=== PATIENT | male | born 1925 | race Caucasian/White ===

== ENCOUNTER 2016-10-23 08:30 | Inpatient (IN) | payer MEDICARE, OTHER ==
[~2016-10-23] VITALS: Ht 170.2 cm; Wt 73.5 kg
[~2016-10-23 08:30] MED LIST: ACIDOPHILUS1 EAC2 PO; ASPIR 8181 MG PO; B COMPLETE1 EACH PO; DILTIAZEM ER180 MG PO; FISH OIL 1,0001 EAC1 PO; HYDROCHLOROTHIA25 MG PO; MULTIVITAMINS1 EAC7 PO; PANTOPRAZOLE SO20 MG PO; PRILOSEC20 MG PO
--- NOTE | 2016-10-27 16:23 | NUR ---
[facility] PT CARE NOTE THIS IS AN 89 YEAR OLD MALE PT THAT IS SCHEDULED FOR A LEFT TOTAL KNEE REVISION BY DR LISE DEL RIO ON 11/09/16. PT STATES HE LIVES WITH HIS IN A ONE STORY HOUSE WITH 2 STEPS INTO IT. HE SAYS HE HAS A TUB/SHOWER COMBINATION AND IS WANTING TO OBTAIN A HANDHELD SHOWER HEAD, AND A SHOWER SEAT. STATES HE ALREADY HAS A FRONT WHEELED WALKER. ALSO HE IS PLANNING ON GOING TO [facility] WHEN DC FROM THE HOSPITAL. WILL FOLLOW THE PT DURING HIS STAY IN THE HOSPITAL. 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
--- NOTE | 2016-11-06 12:05 | NUR ---
RECIEVED A PHONE MESSAGE FROM MRS LEE STATING THAT MY ROSA HAD A HORRIBLE HACKING COUGH AND SHE WANTED TO KNOW WHAT TO DO ABOUT IT. I REFERED THIS CALL TO DAY SURGERY AND THEY WERE GOING TO CALL HER, I BELIEVE IT WAS JOSHUA.
--- NOTE | 2016-11-09 06:55 | NUR ---
SCOPALAMINE PATCH FROM BEHIND RIGHT EAR FOUND LAYING ON PILLOW. NEW PATCH PLACED BEHIND RIGHT EAR.
--- NOTE | 2016-11-09 09:17 | NUR ---
11/09/16 0917 Chari Christy [phone] - PT ARRIVED TO PACU. MAINTAINING OWN AIRWAY. RESPONDS TO STIMULI BUT NOT ANSWERING QUESTIONS. SPINAL LEVEL NOT ASSESSED AT THIS TIME. WILL ASSESS WHEN PT RESPONDS TO QUESTIONS.
--- NOTE | 2016-11-09 09:56 | NUR ---
MED REC COMPLETE WITH TEODOROMART REFILL HISTORY. PATIENT ONLY TAKES ONE PRESCRIPTION MEDICATION PANTOPRAZOLE TWICE DAILY.
--- NOTE | 2016-11-09 10:23 | NUR ---
PT TO ROOM 124 VIA BED, ACCOMPANIED BY MARIZA SHEET METAL JOURNEYMAN AT 1010. RECIEVED BEDSIDE REPORT FROM JAYJAY DAWKINS- NS.NKR. PT RESTING WITH EYES CLOSED BUT AROUSED TO VERBAL STIMULI, SLIGHTLY DROWSY, BUT ORIENTED X 4. DENIES PAIN, DENIES NAUSEA. DRESSING TO LEFT KNEE EXTENDS FROM MID CALF TO MID THIGH, C/D/I, CRYO CUFF IN PLACE OVER DRESSING TO KNEE. PT UNABLE TO MOVE LEFT LEG OR FOOT/TOES, HAS GROSS MOVEMENT TO RIGHT LEG, FOOT, AND TOES. SENSATION DULLED, BUT INTACT TO LEFT THIGH, KNEE, CALF, AND FOOT, PT REPORTS DECREASE IN SENSATION THE MORE DISTAL TO LEFT KNEE THE FEELING IS. PEDAL PULSES WEAK, FEET COOL. JAYJAY DAWKINS REPORTED THAT THIS IS PT'S BASELINE.
--- NOTE | 2016-11-09 11:05 | NUR ---
PT DENIES PAIN, DENIES NAUSEA. PT ABLE TO FEEL DULL TOUCH AND PRESSURE TO LLE. NOW ABLE TO MOVE LEFT FOOT, MOVEMENT WEAK.
--- NOTE | 2016-11-09 11:48 | NUR ---
DR. LOPEZ IN TO SEE PATIENT FOR HOSPITALIST CONSULT.
--- NOTE | 2016-11-09 12:20 | NUR ---
PT RESTING WITH EYES CLOSED, AROUSED TO VERBAL STIMULI. DENIED PAIN, STATED THAT HE JUST FEELS SLEEPY. DENIES NAUSEA. SENSATION IMPROVING TO BILATERAL LOWER EXTREMITIES, INTACT TO INNER FEET AND TOES, REMAINS DULL TO OUTER FEET AND TOES, AND OUTER CALVES. PEDAL PULSES REMAIN FAINT, FEET REMAIN COOL. CAPILARY REFILL IS 4 SECONDS TO BILATERAL FEET. PER PT'S , PT HAS HAD "POOR CIRCULATION" FOR SOME TIME, AND HAS ALSO HAD COOL FEET FOR SOME TIME, SO PT IS AT BASELINE. DR. LOPEZ AWARE OF THIS.
--- NOTE | 2016-11-09 13:00 | NUR ---
PT DROWSY, AROUSED TO VERBAL STIMULI. DENIES PAIN OR NAUSEA. USED INSENTIVE SPIROMETER, GOT UP TO 700. ANESTHESIA STILL RESOLVING, PT HAS SENSATION TO BILATERAL LOWER EXTREMITIES, BUT TOUCH TO LATERAL FEET AND CALVES DULL. PT HAS HAD SIPS OF WATER, DECLINES ANYTHING FURTHER PO AT THIS TIME.
--- NOTE | 2016-11-09 14:50 | NUR ---
PT working with patient. in room with him. fresh ice in cryo cuff. fresh water given. no other needs at this time.
--- NOTE | 2016-11-09 15:00 | NUR ---
PT IN BED, WORKING WITH TAMEKA, PHYSICAL THERAPIST, DOING IN BED EXERCISES. STILL HAS SOME DIMINISHED SENSATION TO LATERAL FEET AND LOWER CALVES. DENIES PAIN.
--- NOTE | 2016-11-09 15:16 | NUR ---
PT WORKING WITH TAMEKA PHYSICAL THERAPIST, STANDING FROM BED WITH FWW WITH 1 PERSON ASSIST. HAVING DIFFICULTY WITH BALANCE, BUT ABLE TO TAKE 2 STEPS FORWARD, THEN 2 STEPS BACKWARDS, AND ASLO ABLE TO STEP TO THE LEFT X 4 STEPS.
--- NOTE | 2016-11-09 15:37 | NUR ---
GAVE PT APPLE JUICE AND 2 JELLOS, PT TOLERATING WELL THUS FAR. PT'S AT BEDSIDE.
--- NOTE | 2016-11-09 16:30 | NUR ---
PT DRANK 300 CC APPLE JUICE, ATE 2 JELLO CUPS, TOLERATED WELL. IS NOW DRINKING ICE WATER. HAS NOT VOIDED SINCE SURGERY, BLADDER SCAN SHOWS 241. PT HAS NO URGE TO VOID, AGREED TO ATTEMPT TO VOID. WILL MONITOR FOR URINE OUTPUT.
--- NOTE | 2016-11-09 16:36 | NUR ---
PT HAD LEFT TOTAL KNEE REVISION TODAY. HAS DRESSING FROM ANKLE TO UPPER THIGH, THICK, GAUZE, CAST PADDING, AND COBAN. DRESSING C/D/I. HAS HAD NO PAIN SINCE SURGERY. IS DRINKING FLUIDS WELL, NO C/O NAUSEA. IV SALINE LOCKED PT IS DRINKING FLUIDS WITHOUT ISSUE. TOLERATED CLEAR LIQUIDS, ADVANCED TO REGULAR DIET. WORKED WITH PHYSICAL THERAPY, DID IN BED EXERCISES, AND DID SITTING TO STANDING EXERCISES X 5. UNSTEADY ON FEET. SPINAL RESOLVING, BUT PT CONTINUES TO HAVE SOME DIMINISHED SENSATION TO LATERAL FEET, TOES, AND CALVES. HAS NOT VOIDED YET, BUT BLADDER SCAN SHOWS ONLY 241 CC. PT DRINKING PO FLUIDS WELL, IS ATTEMPTING TO VOID IN URINAL. IS ON 2L O2 VIA NC, SATS DROP TO 89% WHEN ASLEEP, AND PT HAS BEEN DROWSY, NAPPING OFF AND ON THIS AFTERNOON.
--- NOTE | 2016-11-09 18:18 | NUR ---
PATIENT BLADDER SCANNED FOR 383ML. PATIENT HAS NO URGE TO VOID AT THIS TIME.
--- NOTE | 2016-11-09 18:55 | NUR ---
PT DENIES PAIN. IS ATTEMPTING TO VOID IN URINAL. MOST RECENT BLADDER SCAN LESS THAN 500 CC.
--- NOTE | 2016-11-09 19:15 | NUR ---
BEDSIDE REPORT RECEIVED FROM OFFGOING NURSE. PT LYING IN BED WITH FAMILY AT BEDSIDE. PT DENIES PAIN OR NAUSEA AT THIS TIME. DRESSING TO LLE C/D/I. CELESTE DUARTE AND SCD PRESESNT TO RLE. HEEL PROTECTORS TO BLE. PT DENIES NEEDS AT THIS TIME. CALL LIGHT WITHIN REACH.
--- NOTE | 2016-11-09 20:10 | NUR ---
RESPIRATORY THERAPIST NOTIFIED THIS OIL WELL DRILLING MANAGER THAT HE LOWERED THE PT'S SIDE RAILS SO THAT HE COULD USE THE URINAL, PER PT'S REQUEST. UPON ENTERING THE ROOM. PT STANDING AT BEDSIDE, HOLDING ON TO THE MATTRESS. ASSISTED PT BACK TO BED. EDUCATION PROVIDED REGARDING SAFETY, FALL PERVENTION. PT STATES UNDERSTANDING. STATES "I DIDN'T KNOW I WASN'T SUPPOSED TO BE OUT OF BED". PT ASSESSMENT COMPLETE. PT A&0X4, RATES PAIN 8/10 DRESSING TO LLE REMAINS C/D/I, AND ALL PRECAUTIONS IN PLACE. PT DENIES NAUSEA, STATES "I'M GOING TO THROW UP". EMESIS BAG PROVIDED, PT VOMITED ~200 ML. NEW GOWN AND BEDDING PLACED ON PT. PT REPORT THAT HIS STOMACH IS NOT UPSET, DECLINES FEELING NAUSEATED. PT ABLE TO TOLERATE SIPS OF WATER, SCHEDULED MEDICATIONS GIVEN AT THIS TIME. PT DENIES OTHER NEEDS AT THIS TIME. CALL LIGHT WITHIN REACH, BED ALARM IN PLACE.
--- NOTE | 2016-11-09 21:45 | NUR ---
PT FOUND BY DRYING FRAME OPERATOR SITTING AT BEDSIDE, BLEEDING FROM PULLING IV OUT. PT DENIES HAVING HAD PULLED IV OUT. STATES THAT HE "CANNOT REMEMBER THAT". PT CLEANED UP. NEW GOWN PLACED. PT TRANSFERED TO ROOM 120 FOR CLOSER SUPERVISION. NEW IV SITE PLACED. PT TOLERATED WELL. DENIES OTHER NEEDS, CALL LIGHT WITHIN REACH. CURTAIN OPEN FOR SUPERVISION FROM NURSES STATION.
--- NOTE | 2016-11-09 22:10 | NUR ---
PT BLADDER SCANNED WITH RESULT OF ~530. RANKIN CATHETER PLACED. PT TOLERATED WELL. IMMEDIATE RETURN OF 400ML OF ORANGE URINE. CALL LIGHT WITHIN REACH. DENIES OTHER NEEDS.
--- NOTE | 2016-11-09 23:45 | NUR ---
PT STATES "I'M GONNA THROW UP". EMESIS BAG PROVIDED. NEW GOWN PLACED, LINENS CHANGED. PRN ZOFRAN GIVEN. PT NO LONGER ABLE TO ACCURATELY STATE WHERE HE IS. MD NOTIFED, PLAN HOLD OXYCODONE PER MD ORDER.
--- NOTE | 2016-11-10 02:28 | NUR ---
PT ASSESSMENT COMPLETED. PT HAD 500 OF EMESIS, DENIES FEELING NAUSEATED "I DON'T KNOW WHERE THAT CAME FROM". DRESSING TO LLE C/D/I, ALL PRECAUTIONS REMAIN IN PLACE. RANKIN DRAINING ORANGE URINE. PT CONTINUES TO BE DISORIENTED, ORIENTED TO SELF ONLY. CALL LIGHT WITHIN REACH, BED ALARM ACTIVATED.
--- NOTE | 2016-11-10 04:03 | NUR ---
PT RESTING WITH EYES CLOSED. RESPIRATIONS EVEN AND UNLABORED. PT APPEARS TO BE SLEEPING.
--- NOTE | 2016-11-10 04:16 | NUR ---
PT RESTLESS, DISORIENTED, SLIGHTLY AGITATED MAJORITY OF SHIFT. ORIENTED TO SELF ONLY. BED ALARM IN PLACE. TIDWELL DRESSING TO LLE, C/D/I. CRYOCUFF TO LLE, TEDS & SCD TO RLE, HEEL PROTECTORS TO BLE. EMESIS X 3 THIS SHIFT, ZOFRAN X1. PAIN X1 THIS SHIFT, SCHEDULED PAIN MEDICATION GIVEN. PT UNALBE TO VOID AFTER SURGERY, RANKIN PLACED FOR BLADDER SCAN >500ML. UO QS, ORANGE URINE. 2 LPM VIA NC. 2-3 PA WITH FWW.
--- NOTE | 2016-11-10 05:33 | NUR ---
PT PICKING AT IV SITE. IV SITE REINFORCED WITH COBAN. PT ITCHING ARMS BILATERALLY. STATES "IN PLACES", WHEN ASKED IF HE WAS ITCHING. PRN NUBAIN ADMINISTERED. PT REMAINS ORIENTED TO SELF ONLY. DENIES OTHER NEEDS. BED ALARM REMAINS ACTIVATED AND CURTAIN OPEN FOR SUPERVISION.
--- NOTE | 2016-11-10 07:15 | OR ---
[facility] [address], [place] [address] Signed DATE OF PROCEDURE: 11/12/16 PREOPERATIVE DIAGNOSIS: Failed unicondylar knee replacement, left. POSTOPERATIVE DIAGNOSIS: Failed unicondylar knee replacement, left. PROCEDURE PERFORMED: Revision left total knee both components. SURGEON Lise Duque M.D. POLYMER TESTER Brielle Tran PA-C. Brielle was present for the entire surgery and was critical on positioning, retraction, wound closure and dressing application. ANESTHESIA: Spinal with Duramorph. BLOOD LOSS: Minimal. TOURNIQUET TIME: 95 minutes. IMPLANTS Pako triathlon size 5 femur, 4 tibia with a 9 mm insert and a 35-mm patella. A 10 mm medial tibial wedge with a 12 x 50 stem. BRIEF HISTORY The patient is an 89-year-old gentleman with progressive worsening knee pain that he has had basically since the unicondylar knee replacement was done. Workup showed possible infection; however, aspiration showed nothing. He was afebrile. Risks and benefits for revision were discussed with him and he elected to proceed. DESCRIPTION OF PROCEDURE Once consent was obtained, he was taken to the operating room. After adequate anesthesia, he was placed on the operating room table. A well-padded proximal thigh tourniquet was placed. The leg was then prepped and draped in a standard sterile fashion. A skin incision was then made and prior to opening the knee, 10cc of normal straw-colored fluid was removed and sent off for culture sensitivity and cell count. The fluid was sent off and the reading showed occasional epithelials with no organisms seen. The medial approach was then carried through the capsule of a sleeve around the posterior medial corner and the fat pad was excised. The scar tissue was excised anteriorly. 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 Biopsies were taken and the synovium was removed where the re was heavy metallosis. The knee was then flexed and the femoral component was grossly loose. I actually pulled it off with my fingertips. It Electronically Signed By: LISE DUQUE MD 11/10/16 0715 PATIENT NAME: CALIN LEE OPERATIVE REPORT DATE OF : [birth year] PHYSICIAN: LISE DUQUE MD REPORT #: [id number] REPORT IS CONFIDENTIAL AND NOT TO BE RELEASED WITHOUT AUTHORIZATION [facility] [address] [place], [place] [address] Signed was left in position, however, we positioned the femoral navigation guide and pinned it. Distal femur was then sized. The distal femur was then registered with the computer. The distal femoral cutting guide was set and the femoral component was removed. The distal femoral cut was made. The femur was sized to a 5 and rotation was set using Whitesides line and epicondylar axis. The block was pinned. The anterior, posterior and chamfer cuts were made. There was no need for posterior augment on the femur. The osteophytes were removed. Attention was then turned to the femur. The tibia was fairly loose but not completely loosened from the bone. The polyethylene was completely worn off posteriorly and the metal was rubbing metal on metal. The tibial tray was then removed. The navigation guide was pinned and the medial side was marked on the navigation guide. We then set the cutting block and the lateral side was cut. This was further revised 2 more mm distal after assessing the gap. This good. We then freshened up the medial side to a 10 mm augment. The trials were then positioned after establishing rotation prior to cutting the augment. The femoral trial was placed and using through range of motion with a 9 mm poly and found to be in excellent position alignment. We then drilled the femoral holes, cut and sized and drilled the patella. All bone surfaces were pulse lavaged and packed with a dry Ray-Itzel. Prior to this, we did do the stem drill hole and removed any remaining cement. The cement was mixed. We rod a proper consistency, displaced all implants on bone surfaces. Tibia was impacted in position first and all excess cement removed. The polyethylene was snapped into position and the femur was impacted, again all excess cement was removed. The knee was extended and nicely loaded. The patella was clamped and the remaining cement was removed. The knee was pulse lavaged at intervals throughout the procedure. A total of 3 L antibiotic irrigation was used. The periarticular soft tissues were injected with 100 mL ropivacaine and Toradol mixture. The cement was allowed to harden for 15 minutes and then the knee was flexed. An antibiotic cement was used. Knee was flexed and the remaining excess removed with osteotomes. The arthrotomy was then closed using #1 Stratafix, subcutaneous tissue with 0 Stratafix and skin with bryce. Wound was dressed with a Mepilex Ag dressing, ABD and bulky Ashley dressing. He tolerated the procedure well. All sponge, needle and instrument counts were correct. Lise Duque MD BA/Priscilla /[id number] Electronically Signed By: LISE DUQUE MD 11/10/16 0715 PATIENT NAME: CALIN LEE OPERATIVE REPORT DATE OF : [birth year] PHYSICIAN: LISE DUQUE MD REPORT #: [id number] REPORT IS CONFIDENTIAL AND NOT TO BE RELEASED WITHOUT AUTHORIZATION [address] [place], [place] [address] Signed cc: Paul Madrigal MD Electronically Signed By: LISE DUQUE MD 11/10/16 0715 PATIENT NAME: CALIN LEE OPERATIVE REPORT DATE OF : [birth year] PHYSICIAN: LISE DUQUE MD REPORT #: [id number] REPORT IS CONFIDENTIAL AND NOT TO BE RELEASED WITHOUT AUTHORIZATION
--- NOTE | 2016-11-10 07:22 | NUR ---
REPORT RECEIVED FROM JAYJAY DECKER. PT ASLEEP AFTER A LONG NIGHT OF RESTLESS BEHAVIOR. PT IV INFUSING. DRESSING HAS CRYO CUFF ON TOP BUT APPEARS CDI.
--- NOTE | 2016-11-10 07:29 | NUR ---
DR DEL RIO TO FLOOR. ORDERED TO HOLD OXY UNTIL PT CLEARS AND LEAVE RANKIN IN FOR NOW.
--- NOTE | 2016-11-10 08:45 | NUR ---
PT SITTING UPRIGHT IN BED. DENIES PAIN. STATES HE DOES NOT WANT BREAKFAST, NOT HUNGRY. PT DRINKING HIS TEA. TOOK MEDS WO DIFF. PT APPEARS TO BE MORE ORIENTED THIS MORNING. KNOWS WHERE AND WHAT.
--- NOTE | 2016-11-10 10:13 | NUR ---
FAMILY IN ROOM. PT AWAKE AND TALKATIVE. JOKING WITH THIS RN.
--- NOTE | 2016-11-10 10:45 | NUR ---
PATIENT LAYING IN BED WITH BY HIS SIDE. ASSISTED PATIENT WITH BED BAD. ORAL CARE DONE. FRESH ICE IN CRYO. INCOURAGED TO DRINK MORE FLUIDS. CALL BUTTON IN REACH NO OTHER NEEDS AT THIS TIME.
--- NOTE | 2016-11-10 11:30 | NUR ---
STARTED 500 ML BOLUS OF LR PER DR LOPEZ ORDER.
--- NOTE | 2016-11-10 13:17 | NUR ---
DR. LOPEZ IN TO SEE PATIENT. PATIENT GIVEN 4MG OF ZOFRAN PO FOR MILD NAUSEA.
--- NOTE | 2016-11-10 13:32 | NUR ---
GIVING SECOND 500ML FLUID BOLUS, PER DR. LOPEZ, AT THE SET RATE OF 250ML/HR. RANKIN EMPTIED FOR 75ML OF ORANGE URINE.
--- NOTE | 2016-11-10 15:14 | NUR ---
CHECKED PATIENT'S DRAW SHEET TO SEE IF RANKIN CATH WAS LEAKING AND FOR BM. DRAW SHEET CLEAN AND DRY TURNED PATIENT ON LEFT SIDE. FRESH ICE IN CRYO CUFF. CALL BUTTON IN REACH NO OTHER NEEDS AT THIS TIME.
--- NOTE | 2016-11-10 16:11 | NUR ---
PT SITTING UP IN CHAIR. PLACED TWO WARM BLANKETS. IN ROOM. DENIES PAIN.
--- NOTE | 2016-11-10 16:35 | NUR ---
PT TRYING TO GET HIM TO STAY IN HIS CHAIR. STATES HE CAN GET UP IF HE WANTS. STATES HE IS ACTING WEIRD NOW AFTER THE PHENEGREN. PT NO LONGER NAUSEOUS, BUT IS A LITTLE "WOUND UP". AGREED TO STAY IN CHAIR. PLACED WASTE BASKET UNDER TO KEEP LEG ELEVATED IT FALLS DOWN WITH WEIGHT. FAMILY IN ROOM.
--- NOTE | 2016-11-10 17:35 | NUR ---
PT ORIENTED FOR MOST OF THE DAY. NOW DISORIENTED AND FIDGETY. ONE NORCO GIVEN FOR PAIN. ONLY HURTS WHEN AMBULATING. HEAVY TWO PERSON ASSIST. D5LR @125, UO REMAINED LOW. 1L BOLUS GIVEN SLOWLY. FAMILY IN ROOM ALL DAY.
--- NOTE | 2016-11-10 18:20 | NUR ---
PATIENT CONFUSED TRYING TO FIND A "TUBE". PATIENT STATES HE'S LEAVING. FAMILY IN ROOM. SIDE RAILS UP. FLOOR PADS DOWN. BED ALARM ON. CALL BUTTON IN REACH.
--- NOTE | 2016-11-10 19:05 | NUR ---
BEDSIDE REPORT RECEIVED FROM OFFGOING NURSE. PT SITTING UP IN BED VISITING WITH FAMILY AT BEDSIDE. PER RN REPORT, PT BEGINNING TO BECOME DISORIENTED DAY PROGRESSES. PLAN TO ADMINISTER SEROQUEL CLOSER TO WHEN FAMILY IS PLANNING TO LEAVE FOR THE NIGHT. FAMILY IN AGREEMENT WITH THE PLAN.
--- NOTE | 2016-11-10 21:46 | NUR ---
PT ASSESSMENT COMPLETE. PT FAMILY REMAINS AT BEDSIDE. PT REMAINS ORIENTED TO SELF ONLY. PT HAS FIRM GRASP ON CATHETER, WITH SLIGHT TENSION. PT RELEASED JAVA XML DEVELOPER WITH REORIENTATION. PT DENIES PAIN. TIDWELL DRESSING TO LLE C/D/I. CRYOCUFF AND SCD PRESENT TO LLE, TEDS AND HEEL PROTECTORS TO BLE. CMS INTACT, PT DENIES NUMBNESS OR TINGLING. IS AT BEDSIDE, KNEE ADJUSTMENT LOCKED OUT ON BED. BED ALARM ACTIVATED. CALL LIGHT WITHIN REACH.
--- NOTE | 2016-11-10 22:39 | NUR ---
FILLED THE CRYO.
--- NOTE | 2016-11-10 22:55 | NUR ---
PT RESTING WITH EYES CLOSED. RESPIRATIONS ARE EVEN AND UNLABORED. NO RESTLESSNESS NOTED. CURTAIN OPEN FOR CLOSE SUPERVISION. BEDALARM ACTIVATED. MATS PRESENTS ON FLOOR. CALL LIGHT WITHIN REACH.
--- NOTE | 2016-11-11 00:16 | NUR ---
PT SITTING UP IN BED WITH BLANKETS THROWN OFF. PT STATES "IM GETTING UP". PT REMINDINED THAT HE IS IN THE HOSPITAL, HAD KNEE SURGERY, AND THAT HIS FAMILY WAS HERE THIS EVENING. PT STATES "I KNOW THAT". EXPLAINED TO PT THAT HE MAY NOT GET UP, PT STATES "DARN YOU BUTTHEADS!" PT ASKED WHETHER HE IS HAVING PAIN. PT STATES "WELL YES!". PRN PAIN MEDICATION BROUGHT INTO PT'S ROOM. EXPLANATION OF MEDICATION PURPOSE EXPLAINED. PT STATES "I'M NOT TAKING THAT, I DON'T HAVE PAIN." WARM BLANKET PROVIDED TO PT. PT RESTING IN BED WITH EYES CLOSED. NOT RESTLESS AT THIS TIME. BED ALARM ACTIVATED, MATS ON FLOOR, CURTAIN OPEN FOR SUPERVISION.
--- NOTE | 2016-11-11 01:15 | NUR ---
PT TAKING BLANKETS OFF, SITTING UP IN BED. UPON ENTERING ROOM PT HAS A FIRM GRASP ON RANKIN CATHETER. PT'S HAND IMMOBILIZIED. PT STATES "I AM GETTING UP TO GO TO THE BATHROOM". REMINDED PT THAT HE HAS CATHETER IN PLACE. PT BEGAN TO PULL ON CATHETER. INSTRUCTED PT NOT TO PULL ON CATH, PT SWINGING AT HARDNESS INSPECTOR WITH CLOSED FIST. INSTRUCTED PT NOT TO ATTEMPT TO HIT PEOPLE. PT LAID BACK IN BED. BLADDER SCAN PERFORMED WITH 0ML FOUND IN BLADDER. PT DENEIES TENDERNESS TO ABD. RANKIN DRAINING APPROPRIATELY. PT DENIES PAIN WHEN ASKED. NEW CATH SECURE PLACED ON PT'S LEG. PT RESTING WITH EYES CLOSED SNORING AUDIBLY UPON HARDNESS INSPECTOR'S EXIT FROM ROOM. BED ALARM ACTIVATED, FALL MAT ON FLOOR. CALL LIGHT WITHIN REACH. DRESSING TO LLE C/D/I. ALL PRECAUTIONS REMAIN IN PLACE EXCEPT HEEL PROTECTORS, WHICH PT IS NOT TOLERATING AT THIS TIME.
--- NOTE | 2016-11-11 04:04 | NUR ---
PT RESTING IN BED WITH EYES CLOSED. RESPIRATIONS ARE EVEN AND UNLABORED. PT APPEARS TO BE SLEEPING. BED ALARMS REMAINS ACTIVE AND FALL MATS PRESENT ON THE FLOOR. CALL LIGHT WITHIN REACH.
--- NOTE | 2016-11-11 05:47 | NUR ---
PT ORIENTED TO SELF ONLY THROUGHOUT SHIFT. RESTED WELL MOST OF SHIFT WITH INFREQUENT PERIODS OF WAKING WITH AGITATION. TIDWELL DRESSING TO LLE C/D/I, CRYOFUFF TO IN PLACE. CELESTE AND SCD TO RLE. PT NOT TOLERATING HEEL PROTECTORS THIS SHIFT. MASSIEL GARCIA, KARYNA QS. D5LR @ 125. 2-3 PA WITH FWW. KNEE CONTROLS LOCKED OUT ON BED, BED ALARM ACTIVATED, AND FALL MATS IN PLACE AROUND BED.
--- NOTE | 2016-11-11 07:04 | NUR ---
PT UP TO BEDSIDE COMMODE WITH 3PA AND FWW. XL SOFT BM. PT TOLERATED WELL. AFTERWARDS PT REPORTS PAIN WELL "SORE THROAT". PRN PAIN MEDICATION ADMINISTERED. PT UNABLE TO ACCURATELY UTILIZE PAIN SCALE, STATES "I DON'T KNOW". PT LYING IN BED. BED ALARM ACTIVATED, FALL MATS ON FLOOR. CALL LIGHT WITHIN REACH.
--- NOTE | 2016-11-11 07:45 | NUR ---
2 person assist patient to chair with gate belt and walker. patient weak. set patient up to chair with feet up and chair alarm on. oral care done. linens change. cryo cuff on. call button in reach.
--- NOTE | 2016-11-11 07:47 | NUR ---
RECIEVED BEDSIDE REPORT FROM JAYJAY DECKER. PT SLEEPING, BREATHING EVEN AND UNLABORED. FALL MAT IN PLACE, RANKIN DRAINING WELL.
--- NOTE | 2016-11-11 09:44 | NUR ---
PT UP TO CHAIR FOR BREAKFAST, ATE 50%, DRANK ENSURE. PT ALERT AND ORIENTATED TO SELF, SITUATION. PT DID NOT KNOW EXACTLY WHERE HE IS AT THIS TIME, BUT KNOWS HE IS FROM [facility] [employer]. PT NON-COMBATIVE, PLEASANT, COOPERATIVE.
--- NOTE | 2016-11-11 10:44 | NUR ---
PT IS UP IN CHAIR. PARTCIPATED IN PHYSICAL THERAPY, TOLERATED WELL. HAS FAMILY AT BEDSIDE. PARTCIPATED IN CARES, PLEASANT AND COOPERATIVE.
--- NOTE | 2016-11-11 10:54 | OR ---
[facility] [address], [place] [address] Signed DATE OF PROCEDURE: 11/09/16 PREOPERATIVE DIAGNOSIS: Failed unicondylar knee replacement, left. POSTOPERATIVE DIAGNOSIS: Failed unicondylar knee replacement, left. PROCEDURE PERFORMED: Revision left total knee both components. SURGEON: Lise Duque M.D. MONEY ROOM SUPERVISOR Brielle Tran PA-C. Brilele was present for the entire surgery and was critical on positioning, retraction, wound closure and dressing application. ANESTHESIA: Spinal with Duramorph. BLOOD LOSS: Minimal. TOURNIQUET TIME: 95 minutes. IMPLANTS Pako triathlon size 5 femur, 4 tibia with a 9 mm insert and a 35-mm patella. A 10 mm medial tibial wedge with a 12 x 50 stem. BRIEF HISTORY The patient is an 89-year-old gentleman with progressive worsening knee pain that he has had basically since the unicondylar knee replacement was done. Workup showed possible infection; however, aspiration showed nothing. He was afebrile. Risks and benefits for revision were discussed with him and he elected to proceed. DESCRIPTION OF PROCEDURE Once consent was obtained, he was taken to the operating room. After adequate anesthesia, he was placed on the operating room table. A well-padded proximal thigh tourniquet was placed. The leg was then prepped and draped in a standard sterile fashion. A skin incision was then made and prior to opening the knee, 10cc of normal straw-colored fluid was removed and sent off for culture sensitivity and cell count. The fluid was sent off and the reading showed occasional epithelials with no organisms seen. The medial approach was then carried through the capsule, The HALF-WAY was elevated as a sleeve around the posterior medial corner and the fat pad was excised. The scar tissue was excised anteriorly. 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 Biopsies were taken and the synovium was removed where there was heavy metallosis. The knee was then flexed and the femoral component was grossly loose. I actually pulled it off with my Electronically Signed By: LISE DUQUE MD 11/11/16 1054 PATIENT NAME: CALIN LEE OPERATIVE REPORT DATE OF : [birth year] PHYSICIAN: LISE DUQUE MD REPORT #: [id number] REPORT IS CONFIDENTIAL AND NOT TO BE RELEASED WITHOUT AUTHORIZATION [facility] [address], [place] [address] Signed fingertips. It was left in position, however, we positioned the femoral navigation guide and pinned it. Distal femur was then sized. The distal femur was then registered with the computer. The distal femoral cutting guide was set and the femoral component was removed. The distal femoral cut was made. The femur was sized to a 5 and rotation was set using Whitesides line and epicondylar axis. The block was pinned. The anterior, posterior and chamfer cuts were made. There was no need for posterior augment on the femur. The osteophytes were removed. Attention was then turned to the femur. The tibia was fairly loose but not completely loosened from the bone. The polyethylene was completely worn off posteriorly and the metal was rubbing metal on metal. The tibial tray was then removed. The navigation guide was pinned and the medial side was marked on the navigation guide. We then set the cutting block and the lateral side was cut. This was further revised 2 more mm distal after assessing the gap. We then freshened up the medial side to a 10 mm augment. The trials were then positioned after establishing rotation prior to cutting the augment. The femoral trial was placed and using through range of motion with a 9 mm poly and found to be in excellent position alignment. We then drilled the femoral holes, cut and sized and drilled the patella. All bone surfaces were pulse lavaged and packed with a dry Ray-Itzel. Prior to this, we did do the stem drill hole and removed any remaining cement. The cement was mixed. We rod a proper consistency, displaced all implants on bone surfaces. Tibia was impacted in position first and all excess cement removed. The polyethylene was snapped into position and the femur was impacted, again all excess cement was removed. The knee was extended and nicely loaded. The patella was clamped and the remaining cement was removed. The knee was pulse lavaged at intervals throughout the procedure. A total of 3 L antibiotic irrigation was used. The periarticular soft tissues were injected with 100 mL ropivacaine and Toradol mixture. The antibiotic cement was allowed to harden for 15 minutes and then the knee was flexed. Knee was flexed and the remaining excess removed with osteotomes. The arthrotomy was then closed using #1 Stratafix, subcutaneous tissue with 0 Stratafix and skin with bryce. Wound was dressed with a Mepilex Ag dressing, ABD and bulky Ashley dressing. He tolerated the procedure well. All sponge, needle and instrument counts were correct. Lise Duque MD BA/Priscilla /[id number] Electronically Signed By: LISE DUQUE MD 11/11/16 1054 PATIENT NAME: ROSACALIN OPERATIVE REPORT DATE OF : [birth year] PHYSICIAN: LISE DUQUE MD REPORT #: [id number] REPORT IS CONFIDENTIAL AND NOT TO BE RELEASED WITHOUT AUTHORIZATION [address] [place], [place] [address] Signed cc: Paul Madrigal MD Electronically Signed By: LISE DUQUE MD 11/11/16 1054 PATIENT NAME: CALIN LEE OPERATIVE REPORT DATE OF : [birth year] PHYSICIAN: LISE DUQUE MD REPORT #: [id number] REPORT IS CONFIDENTIAL AND NOT TO BE RELEASED WITHOUT AUTHORIZATION
--- NOTE | 2016-11-11 10:58 | NUR ---
PATIENT UP IN CHAIR FEET ELEVATED. FRESH WATER. ICE IN CRYO CUFF. ORAL CARE, SHAVE, BED BATH DONE. CALL BUTTON IN REACH FAMILY IN ROOM NO OTHER NEEDS AT THIS TIME.
--- NOTE | 2016-11-11 12:33 | NUR ---
RANKIN REMOVED BY MEDICAL STUDENTS. PT TOLERATED WELL. DRESSING REMOVED BY MD. SMALL AMOUNT OF BRUSING ON KNEE. EDILIA ARE CLEAN, DRY, INTACT. WOUND EDGES ARE WELL APROXIMATED.
--- NOTE | 2016-11-11 13:03 | NUR ---
patient sitting up in chair resting with eyes closed in chair.
--- NOTE | 2016-11-11 14:37 | NUR ---
REDRESSED LEFT KNEE WITH MEPLEX AND LYNDSEY WRAP. SURGICAL WOUND EDGES ARE WELL APROXIMATED, CLEAN, DRY. SCANT AMOUNT OF DRAINAGE FROM EDILIA. PT ALERT AND AWAKE.
--- NOTE | 2016-11-11 18:51 | NUR ---
TIDWELL DRESSING REMOVED, REDRESSED WITH MEPLEX AND LYNDSEY WRAP. DRESSING C/D/I. SOME BRUISING NOTED AROUND INCISION. SCANT AMOUNT OF DISCHARGE FROM EDILIA. PT ENDORSED PAIN WITH ACTIVITY, PAIN WELL CONTROLED AT REST.
--- NOTE | 2016-11-11 20:00 | NUR ---
RECEIVED REPORT AT 1900. FOUND PT IN CHAIR JUST FINISHING HIS DINNER. FAMILY JUST ENTERED THE ROOM. PT SEEMS TO BE IN GOOD SPIRITS AND HE DENIES ANY PAIN AT THIS TIME.
--- NOTE | 2016-11-11 20:15 | NUR ---
ALL LOBES WERE CLEAR, V/S WERE WNL, HOWEVER, PT HAD A TEMP OF 99.9 F. WILL CHECK MAR FOR AVAILABLE MEDS. EDEMA IS LLE IS +1, DORSALIS PEDIS PULSE ON LLE IS +1, PT DENIES NUMBNESS OR TINGLING, TOES ARE WARM TO TOUCH. PT HAS WEAKNESS IN BOTH FEET DUE TO FOOT DROP THAT IS BILATERALLY PRESENT. RIGHT DORSALIS PEDIS AND BILATERAL BRACHIAL PULSES ARE +2. BOWEL TONES IN ALL QUADRANTS ARE PRESENT. PT AT THIS TIME IS ONLY ORIENTED TO PERSON BUT IS COOPERATIVE.
--- NOTE | 2016-11-11 21:59 | NUR ---
PT IS SLEEPING AT THIS TIME.
--- NOTE | 2016-11-12 01:09 | NUR ---
PT IS AWAKE IN BED. ASSISTED PT WITH URINAL. PT DID NOT CALL FOR ASSISTANCE AND WAS GETTING READY TO GET OUT OF BED. BED ALARM IS NOW IN SITTING POSITION.
--- NOTE | 2016-11-12 03:15 | NUR ---
PT IS SLEEPING AT THIS TIME.
--- NOTE | 2016-11-12 04:16 | NUR ---
PT APPEARS TO BE RESTING IN BED AT THIS TIME.
--- NOTE | 2016-11-12 04:49 | NUR ---
PT OVERALL HAD AN UNEVENTFUL NIGHT.PT HAS BEEN SLEEPING ALL NIGHT. V/S SO FAR WERE WNL. NO NEW ISSUES NOTED AT THIS TIME.
--- NOTE | 2016-11-12 05:19 | NUR ---
PT OVERALL HAD AN UNEVENTFUL NIGHT. PT DOES NOT CALL WHEN GETTING OUT OF BED AND HAS BED ALARM ON. PT DENIED PAIN THIS SHIFT. PT HAS ONLY BEEN ORIENTED TO SELF THIS SHIFT. V/S ARE WNL. PT OVERALL IS STILL VERY WEAK.
--- NOTE | 2016-11-13 07:05 | DS ---
[facility] [address] [place], [place] [address] Signed ADMISSION DIAGNOSIS Aseptic failure, left unicondylar knee replacement. DISCHARGE DIAGNOSIS Aseptic failure, left unicondylar knee replacement. PROCEDURE PERFORMED DURING THIS HOSPITALIZATION Left total knee revision arthroplasty. BRIEF HISTORY The patient is an 89-year-old gentleman with progressive worsening of arthritis and failure or loosening of his unicondylar knee replacement. Risks and benefits of operative treatment were discussed with him and workup confirmed no significant infection. He elected to proceed. Once consent was obtained, taken to the operating room. After adequate anesthesia, he was placed on operating table. All downside pressure points well padded. He underwent the above-named procedure. He tolerated this well. He was taken to recovery room and subsequently to the orthopedic floor. He was seen by Physical Therapy, and due to fatigue, he was little bit slow to rehab. His pain control was excellent throughout his hospitalization. His labs remained stable. He was afebrile. He was felt to be a good candidate for continued inpatient rehab in a transitional bed to get himself strong enough to go home. He is agreeable with this plan. We will switch him to transitional bed today. Lise Duque MD BA/Josel /[id number] cc: Paul Madrigal DO Electronically Signed By: LISE DUQUE MD 11/13/16 0705 PATIENT NAME: CALIN LEE DISCHARGE SUMMARY DATE OF : [birth year] PHYSICIAN: LISE DUQUE MD REPORT #: [id number] REPORT IS CONFIDENTIAL AND NOT TO BE RELEASED WITHOUT AUTHORIZATION
== END 2016-11-12 06:14 | disposition swing bed (61) | DRG 463 ==
LOC: DSVR 11-09 05:40 → MS 11-09 05:40
PROVIDERS: ADMIT Specialist
PROC: 0SUD09Z Supplement Left Knee Joint with Liner, Open Approach (ICD-10-PCS; 2016-11-09)
PROC: 0SWD0JZ Revision of Synthetic Substitute in Left Knee Joint, Open Approach (ICD-10-PCS; 2016-11-09)
PROC: 3E0T3CZ (ICD-10-PCS; 2016-11-09)
PROC: 0SPD09Z Removal of Liner from Left Knee Joint, Open Approach (ICD-10-PCS; principal; 2016-11-09 06:45)
DX: T84.033A Mechanical loosening of internal left knee prosthetic joint, initial encounter (principal); G92 Toxic encephalopathy; N17.9 Acute kidney failure, unspecified; T40.2X5A Adverse effect of other opioids, initial encounter; G89.18 Other acute postprocedural pain; K21.9 Gastro-esophageal reflux disease without esophagitis; R73.03 Prediabetes; G62.9 Polyneuropathy, unspecified; M21.372 Foot drop, left foot; M21.371 Foot drop, right foot; Z86.79 Personal history of other diseases of the circulatory system; Y92.239 Unspecified place in hospital as the place of occurrence of the external cause; Z79.82 Long term (current) use of aspirin; Z88.5 Allergy status to narcotic agent; Z79.899 Other long term (current) drug therapy; Z87.891 Personal history of nicotine dependence
CPT/HCPCS: 01402; 36415; 64447; 64450; 73560; 76942; 80048; 80076; 85025; 87070; 87075; 87205; 88305; 89051; 89060; 94762; 97110; 97116; 97162; 97530; C1713; C1776; J0690; J1100; J1885; J2274; J2405; J2550; J2704; J2795; J3010; J7120

== ENCOUNTER 2016-11-12 06:15 | Inpatient (IN) | payer MEDICARE, OTHER ==
[~2016-11-12] VITALS: Ht 170.2 cm; Wt 73.5 kg
--- NOTE | 2016-11-12 07:00 | NUR ---
BEDSIDE HANDOFF REPORT RECEIVED FROM SPA ASSISTANT MANAGER RN. PT SLEEPING, LEFT UNDISTURBED.
--- NOTE | 2016-11-12 07:40 | NUR ---
BED ALARM SOUNDING. PT ATTEMPTING TO GET OUT OF BED. PT ASSISTED TO RESTROOM, 1 PERSON MAX ASSIST WITH FWW. PT WITH LOOSE STOOL. PT ASSISTED TO CHAIR, CHAIR ALARM ON.
--- NOTE | 2016-11-12 08:05 | NUR ---
PT SITTING IN CHAIR, CHAIR ALARM ON. PT DISORIENTED TO PLACE AND TIME. PT ON ROOM AIR, LUNG SOUNDS CLEAR. PT HR IRREGULAR. PT WITH LOOSE STOOL, MIRALAX HELD. PT CMS INTACT, LEFT LEG WITH 1+ EDEMA. PT WITH HX OF BILATERAL FOOT DROP, FOOT BRACE TO RIGHT FOOT. PT TOLERATING REGULAR DIET. PT CRYOCUFF. PT DENIES NEEDS AT THIS TIME.
--- NOTE | 2016-11-12 08:10 | NUR ---
MED REC COMPLETE--SWING
--- NOTE | 2016-11-12 10:31 | NUR ---
VISITED WITH PT BRIEFLY. HIS AND DAUGHTER ARE WITH HIM JUST A HELLO AHD PRAYER. PT DOING OK CONSIDERING SITUATION.
--- NOTE | 2016-11-12 11:11 | NUR ---
PT RESTING IN CHAIR. FAMILY AT BEDSIDE.
--- NOTE | 2016-11-12 11:37 | NUR ---
PT DISORIENTED TO PLACE, EVENT AND TIME. AT BEDSIDE, STATES OXYCODONE MAKES PT CONFUSED. PLAN TO HOLD OXYCODONE, NORCO AVAILABLE FOR PAIN CONTROL.
--- NOTE | 2016-11-12 14:55 | NUR ---
PT COMPLETED WITH PHYSICAL THERAPY. PT COMPLAINT OF PAIN WHILE WALKING. PT CONTINUES TO BE DISORIENTED. PT GIVEN 1 TAB NORCO. PT RESTING IN BED. CRYOCUFF, SCDS IN PLACE. BED ALARM ON. PT DENIES NEEDS AT THIS TIME.
--- NOTE | 2016-11-12 16:29 | NUR ---
PT CONFUSED, AGGITATED, PT PUSHING AND SWINGING AT NURSING STAFF. PT ASSISTED TO BATHROOM AND BACK TO BED. BED ALARM ON. DR. DEL RIO CALLED, NOTIFIED OF CONFUSION AFTER PAIN MEDICATION. TELEPHONE ORDER FOR NUCYNTA 50 MG 1-2 TABS Q4PRN AND TO DISCONTINUE OXYCODONE, RBVO.
--- NOTE | 2016-11-12 18:26 | NUR ---
DAUGHTER UPDATED ON PT STATUS, QUESTIONS AND CONCERNS ANSWERED.
--- NOTE | 2016-11-12 18:27 | NUR ---
PT CONFUSED, ORIENTED TO SELF, OXYCODONE DISCONTINUED, NUCYNTA ADDED. PT LUNG SOUNDS CLEAR, ON ROOM AIR. PT WORKED WITH PHYSICAL THERAPY AND OCCUPATIONAL THERAPY. PT TOLERATING REGULAR DIET, DENIES NAUSEA. PT WITH MULTIPLE LOOSE STOOLS, MIRALAX HELD. PT UP WITH 1-2PA WITH FWW, PT TO WEAR FOOT DROP BRACES WHEN OOB. PT WITH SCDS, HEEL PROTECTORS AND CRYOCUFF IN PLACE. PT VOIDING QS.
--- NOTE | 2016-11-12 20:00 | NUR ---
RECEIVED REPORT AT 1900. FOUND PT IN BED WITH FAMILY AT BEDSIDE.
--- NOTE | 2016-11-12 20:30 | NUR ---
EDEMA IN LLE IS STILL +2. THERE IS ALSO SIGNIFICANT BRUISING AND REDDNESS ON THE INSIDE OF HIS THIGH. PT DENIES PAIN AT THIS TIME. PT IS STILL AN ASSIST X2 DUE TO WEAKNESS IN BOTH LEGS. PT AT THIS TIME IS ONLY ORIENTED TO SELF. BED ALARM IS ON. ICE IS ALSO APPLIED AT SX SITE. V/S WERE WNL. PT IS TRYING TO SLEEP SINCE HE DID NOT SLEEP LAST NIGHT.
--- NOTE | 2016-11-12 23:06 | NUR ---
PT TRIED TO GET OUT OF BED. PT DOES NOT FOLLOW INSTRUCTIONS. PT ONLY HAS PAIN WHEN STANDING. ASSISTED PT WITH CLEAN UP AND BED CHANGE AFTER USING URINAL IN BED. PT IS BACK IN BED. BED ALARM IS ON.
--- NOTE | 2016-11-13 | NUR ---
PT HAS BEEN TRYING TO GET OUT OF BED SEVERAL TIMES. PT IS ORIENTED X1. PT HAS ALSO THREATEND TO HARM STAFF.
--- NOTE | 2016-11-13 02:52 | NUR ---
AT AROUND 0115 MD DEL RIO WAS CALLED ABOUT THIS PT AND HIS BEHAVIOR. RECEIVED AN ORDER FOR 0.5MG XANAX PO. PT UNTIL NOW REFUSED IT. SINCE THE PHONE CALL TO MD DEL RIO PT HAS TRYIED TO GET UP SEVERAL TIMES AND REFUSING HELP WHEN GOING TO THE BATHROOM. PT REFUSED URINAL AND BEDSIDE COMODE FOR A WHILE. AT AROUND 0245 I ASSISTED PT TO BATHROOM. HE VOIDED AND HAD A BM. PT NOW IS BACK IN BED. I REQUESTED A SITTER FROM LEARNING DEVELOPER. SHE SHOULD BE HERE SHORTLY.
--- NOTE | 2016-11-13 03:41 | NUR ---
PT IS SLEEPING NOW.
--- NOTE | 2016-11-13 04:43 | NUR ---
PT JUST WOKE UP AND WAS SHORT OF BREATH. O2 SATS WERE AT 92%. ONCE PT SAT UP IN BED O2 SATS WERE 93-94% AND STILL ARE. HIS IS ON FILM PAINTER AT THIS TIME. WILL CONTINUE TO MONITOR. ALL RIGHT LOBES HAVE FAINT EXPIRATORY WHEEZING. LEFT LOBES ARE CLEAR. WILL CONTINUE TO MONITOR.
--- NOTE | 2016-11-13 05:05 | NUR ---
PT KEPT TRYING TO GET UP FOR THE MOST PART OF THIS SHIFT. HE WAS ONLY ORIENTED TO SELF AND WAS THREATENING STAFF. MD DEL RIO ORDERED XANAX 0.5MG PO. PT AT FIRST REFUSED. PT SLEPT FOR A WHILE AFTER TAKING THE XANAX. PT AT THIS TIME IS A ONE ON ONE. PT WOKE UP AROUND 0430 WITH SOB. PT NOW IS ON BUMPER MACHINE OPERATOR AND O2 SATS ARE AROUND 93-94% ON RA. PT AT THIS TIME IS RESTING IN BED.
--- NOTE | 2016-11-13 07:00 | NUR ---
BEDSIDE HANDOFF REPORT RECEIVED FROM SHINE WORKER RN. PT GETTING OUT OF BED, PT CONFUSED. PT ASSISTED TO SIT AT EDGE TO VOID. MD AT BEDSIDE. PT ASSISTED BACK TO BED. BED ALARM ON.
--- NOTE | 2016-11-13 07:37 | NUR ---
URINE SAMPLE COLLECTED, PT ABLE TO VOID 45 ML OF LIGHT YELLOW CLEAR URINE. BUNDLE CLERK TO BEDSIDE TO DRAW LABS. PT IN BED, BED ALARM ON. LUNG SOUNDS CLEAR RIGHT SIDE, COARSE THROUGHOUT LEFT. PT DENIES NEEDS AT THIS TIME.
--- NOTE | 2016-11-13 07:55 | NUR ---
PT SITTING IN CHAIR, CHAIR ALARM IN PLACE. PT LUNG SOUNDS CLEAR, ON ROOM AIR, O2 SATS 94%, DENIES SOB. PT DENIES CHEST PAIN. PT HR IRREGULAR. PT BOWEL TONES ACTIVE, LOOSE BM TODAY. PT DENIES NAUSEA, TOLERATING REGULAR DIET. PT WITH EDEMA TO LLE 2+, RLE WITH TRACE EDEMA. PT ORIENTED TO SELF ONLY, REORIENTED TO ROOM AND SITUATION, PT NOT AGGITATED, EASILY REDIRECTED, FOLLOWING COMMANDS. PT DENIES NEEDS AT THIS TIME. CLOSE OBSERVATION, CLOSE TO NURSES STATION.
--- NOTE | 2016-11-13 11:01 | NUR ---
PHYSICAL THERAPY TO BEDSIDE, REPORTING THAT PT COMPLAINING OF PAIN. PT COOPERATIVE WITH THERAPY. PT GIVEN 50 MG NUCYNTA, RATING PAIN 8/10.
--- NOTE | 2016-11-13 17:30 | NUR ---
PATIENT ATE 100% OF DINNER, APPEARS UNBALANCED ON FEET. 2 PERSON ASSIST WITH WALKER AND GAIT BELT. PAIN WELL CONTROLLED ON NON NARCOTIC PAIN MEDICAITON. FAMILY WITH PATIENT THROUGHOUT EVENING. X3 BMS AND URINATING WELL. LR@ 125 ML HR. STOP AFTER THIS BAG.
--- NOTE | 2016-11-13 20:00 | NUR ---
RECEIVED REPORT AT 1900. PT WAS IN BED SLEEPING.
--- NOTE | 2016-11-13 21:06 | NUR ---
PT PAINFUL AFTER RETURNING TO BED FROM BEDSIDE COMMODE. 1 TAB NUCYNTA GIVEN.
--- NOTE | 2016-11-13 22:00 | NUR ---
PT HAS TRYIED TO GET OUT OF BED SEVERAL TIMES AND IS STILL ORIENTED TO SELF. EXTRACTIONS TECHNICIAN CALLED MD LOPEZ AND GOT AN ORDER FOR SEROQUEL. IT WAS GIVEN. PT IS BACK IN BED NOW. ALL LOBES ARE CLEAR AT THIS TIME. LLE EDEMA IS STILL +2. PT KEEPS BENDING HIS LLE. I HAVE TALKED TO PT SEVERAL TIMES ABOUT KEEPING IT STRAIGHT AND THE CONSEQUENCES OF KEEPING IT BENT. PT DUE TO HIS MENTAL STATUS IS NOT ABLE TO RETAIN ANY EDUCATION AT THIS TIME. I WILL RELATE TO DAY SHIFT TO HAVE MD LOPEZ TALK TO HIS ABOUT HIS BASELINE MENTAL STATUS. PT IS IN BED NOW.
--- NOTE | 2016-11-14 01:44 | NUR ---
PT IS SLEEPING AT THIS TIME.
--- NOTE | 2016-11-14 03:57 | NUR ---
PT TRYIED TO GET OUT OF BED. PT NEEDED TO URINATE. PT WAS OK WITH USING THE URINAL IN BED. PT IS RESTING IN BED AT THIS TIME. BED ALARM IS ON.
--- NOTE | 2016-11-14 05:49 | NUR ---
AT START OF SHIFT PT TRIGGERD BED ALARM SEVERAL TIMES. PT IS STILL ONLY ORIENTED TO SELF. MD LOPEZ WAS CALLED BY SECOND FLOOR OPERATOR AND AN ADDITIONAL SEROQUEL ORDER WAS GIVEN. SINCE THEN PT HAS BEEN SLEEPING MOST OF THE NIGHT. HE TRIED TO GET OUT OF BED A COUPLE OF TIMES BUT WAS VERY COOPERATIVE WHEN ASKED TO USE THE URINAL IN BED AND NOT TO GET OUT OF BED BY HIMSELF. PERHAPS AND FAMILY NEED TO BE ASKED ABOUT HIS MENTAL STATUS BASELINE AT HOME.
--- NOTE | 2016-11-14 08:47 | NUR ---
PATIENT WAS ASSISTED UP TO THE CHAIR AND GIVEN A BEDBATH. NO OTHER REQUESTS AT THIS TIME.
--- NOTE | 2016-11-14 09:04 | NUR ---
PATIENT UP TO SHOWER AND THEN RECLINER. NEEDS 2 PERSON ASSIST. PAIN WELL CONTROLLED. EATING BREAKFAST TOLERATING WELL.
--- NOTE | 2016-11-14 11:00 | NUR ---
PATIENT UP TO BATHROOM, DENIES NEED FOR PAIN MEDICAITON. APPEARS MORE STABLE ON FEET. APPEARS DROWSY, WHEN SITTING DOZES OFF. ICE TO LEG. PROVIDED PATIENT WITH SHAVE.
--- NOTE | 2016-11-14 15:08 | NUR ---
PATIENT UP IN WHEEL CHAIR IN HALLS, NO COMPLAINTS OF PAIN. IN ROOM CONVERSING. NO COMPLAINTS OF PAIN. CONTINUES TO APPEAR DROWSY. PROVIDED PATIENT WITH ICECREAM AND ENCOURAGED TO STAY AWAKE.
--- NOTE | 2016-11-14 17:38 | NUR ---
PATIENT DROWSY THROUGHOUT DAY, ENCOURAGED PATIENT TO STAY AWAKE. WHEEL CHAIR RIDE OUTSIDE, AND PROVIDED PATIENT WITH SHAVE TO FACE. GOOD APPETITE THROUGHOUT DAY. APPEARS TO BE STEADY ON FEET WITH WALKER AND 2 PERSON STBY ASSIST, A MARKED IMPROVEMENT FROM YESTERDAY. CONTINUES TO HAVE BRUISING TO BACK SIDE OF LEG. DENIED NEED FOR PAIN MEDICATION THROUGHOUT DAY. EVENING DOSE OF SERAQUIL DC'D. PATIENT ALERT TO SELF AND APROPIATE WITH STAFF. TAB ALARM IN PLACE, CONTINUES TO TRY TO GET UP WITHOUT CALLING FIRST.
--- NOTE | 2016-11-14 20:35 | NUR ---
PT WOKE AT THIS TIME AND CALLED OUT FOR HELP TO AMBULATE INTO BATHROOM. ABLE TO STAND WITH ONE PERSON ASSIST AND CUEING TO AMBULATE INTO BATHROOM TO VOID. STATES HE KNOWS HE HAD KNEE SURGERY BUT [facility] ONE PERSON ASSIT WITH FWW TO BED, POSITIONED FOR COMFORT AND CRYOCUFF TO KNEE. GOOD CMS TO FOOT, HEEL PROTECTORS AND SCD TO R LEG. DENIES WANTING A SNACK, GIVEN TV REMOTE, WATCHING SHOW. BED ALARM ACTIVE FOR SAFETY.
--- NOTE | 2016-11-15 01:24 | NUR ---
taking over care of this pt, pt resting, no resp distress
--- NOTE | 2016-11-15 04:39 | NUR ---
PT ALERT TO NAME AND PLACE, COOPERATIVE WITH ASSESSMENTS, APPROPRIATE. USES CALL LIGHTS APPROPRIATELY, ASKS FOR URINAL, SL DC'D PER ORDERS. NO C/O PAIN, SPB, CUNFUSION OR AGGRESSIVENES. TURNS SELF IN BED. CONTINUES ON SWING BED PROGRAM
--- NOTE | 2016-11-15 07:24 | NUR ---
RECIEVED BEDSIDE REPORT FROM JAYJAY CHAVEZ. PT SLEEPING, BREATHING EVEN AND UNLABORED.
--- NOTE | 2016-11-15 09:16 | NUR ---
PT ATE BREAKFAST. FAMILY AT BEDSIDE. PT REPORTS NO PAIN, NO NAUSEA. BRUISING AROUND LEFT KNEE, SHADOWING ON DRESSING.
--- NOTE | 2016-11-15 16:09 | NUR ---
PT UP TO BATHROOM WITH MINIMAL ASSISTANCE. AMBULATED TO CHAIR. STATED MILD PAIN IN LEFT KNEE,
--- NOTE | 2016-11-15 17:22 | NUR ---
PT UP WITH PHYSICAL THERAPY, AMBULATED IN ESCOTO. PT NEEDED ONLY MINIMAL ASSIST IN STANDING TO AMBULATE TO TOILET. PT UP IN CHAIR FOR MEALS. DRESSING C/D/I. WOUND WELL APROXIMATED. MODERATE BRUISING AROUND KNEE.
--- NOTE | 2016-11-15 20:20 | NUR ---
PT IN GOOD SPIRITS, HAD A GOOD DAY, ONE PERSON ASSIST TO WALK INTO BATHROOM, STOOD AT SINK AND DID OWN HS CARES, STATES HE IS READY FOR BED. DENIES PAIN. IN BED NOW, CALL LIGHT IN EASY REACH.
--- NOTE | 2016-11-16 01:28 | NUR ---
ONE PERSON ASSIST TO AMBULATE INTO BATHROOM TO VOID. DENIES PAIN, REQUESTED WARM BLANKET FOR COMFORT.
--- NOTE | 2016-11-16 07:20 | NUR ---
one person assist with walker to the bathroom. shave, oral care, shower, shampoo, igor care, skin care, linenes changed done. patient sitting up in chair eating breakfast. call button in reach. eating breakfast.
--- NOTE | 2016-11-16 07:23 | NUR ---
BEDSIDE REPORT PT RESTING IN BED QUIETLY EYES CLOSED RR REGULAR. NO DISTRESS NOTED PT APPEARS TO BE SLEEPING, MILD SNORING NOTED
--- NOTE | 2016-11-16 08:36 | NUR ---
PT UP TO RECLIENR FOR BREAKFAST AFTER SHOWER. PT REPORTS NO PAIN.
--- NOTE | 2016-11-16 10:17 | NUR ---
PATIENT SITTING UP IN CHAIR RESTING WITH EYES CLOSED. SITTING BY HIS SIDE. CALL BUTTON IN REACH. CRYO CUFF HAS ICE. CHAIR ALARM ON FEET ELEVATED. NO OTHER NEEDS AT THIS TIME.
--- NOTE | 2016-11-16 11:27 | NUR ---
PT UP TO BATHROOM REPORTS PAIN IS MORE SIGNIFICANT IWTH ACTIVITY THAN BEFORE. DISCUSSED NEW PAIN MEDICATION NUCYNTA WITH PT AND SPOUSE. BOTH AGREE TO TRY AT THIS TIME. WILL MONITOR FOR EFFECTIVNESS
--- NOTE | 2016-11-16 12:35 | NUR ---
PT REPORTSNO PAIN AT THIS TIME RESTING IN RECLINER.
--- NOTE | 2016-11-16 13:11 | NUR ---
PT IN CHAIR, CHILLED AND WRAPPED IN WARMED BLANKET. SHE WAS ALERT AND FRIENDLY AND SHOOK MY HAND. HIS WAS BY HIS SIDE. HE SAID HE WASN'T FEELING MUCH BETTER YET TODAY. PT REQUESTED PRAYER, AND ASKED IF I WOULD CONTACT THEIR CERTIFIED MEDICATION AIDE, WHICH I DID. HE SEEMED TO STILL HAVE HIS SENSE OF HUMOR AND INVITED ME BACK. WILL CONTINUE TO FOLLOW
--- NOTE | 2016-11-16 14:31 | NUR ---
PT RESTING IN RECLINER AFTER PHYSICAL THERAPY. PHYSICAL THERAPIST REPORTS PT PAIN WAS AT 5/10 WITH ACTIVITY, PT REPORTS NO PAIN AT THIS TIME. WILL MONITOR
--- NOTE | 2016-11-16 15:39 | NUR ---
PT REPORTS NO PAIN AT REST. CRYO CUFF ON AND FRESH ICE. PT SPOUSE AT CHAIR SIDE
--- NOTE | 2016-11-16 17:25 | NUR ---
TOOK PT FOR A WALK AND HE WAS ABLE TO MAKE IT DOWN THE HALLWAY ABOUT THE LENGTH OF TWO ROOMS, HE COMPLAINED OF HIS KNEE HURTING MORE THIS TIME. STATION USHER MET US AT THE PTS DOOR WITH A CHAIR FOR HIM TO SIT DOWN IN.
--- NOTE | 2016-11-16 18:13 | NUR ---
PT HAS BEEN UP WITH PHYSICAL THERAPY X2, HE HAS BEEN UP IN RECLINER THROUGHOUT THE DAY, AMBULATED ESCOTO WITH EMERGENCY COMMUNICATIONS DISPATCHER THIS AFTERNOON. PT REPORTS NO PAIN AT REST, INCREASED PAIN WITH ACTIVITY. PT ON ROOM AIR. TOLERQTING REGULAR DIET WELL. INCISION WNL DRY, EDILIA INTACT OPEN TO ROOM AIR. PT SHOWERED TODAY. CRYO CUFF ON AND ICED.
--- NOTE | 2016-11-16 20:40 | NUR ---
PT IN BED MOLLY, WONDERING WHERE HIS AUNT IS THAT WAS GOING TO COME FISHING TODAY. ASK PT WHERE HE IS, STATES HE DOESN'T KNOW, ASK HIM WHAT SURGERY HE HAD, SAID HIS LEFT KNEE. ASKED IF HE SAW HIS TODAY, SHE VISTED TODAY, HE SAID NO. HAS HISTORY OF MEMORY WORSENING IN EVENING/NIGHT TIME. ORIENTATED HIM TO PLACE AND TIME, BED ALARM ON, CRYO CUFF ON RIGHT KNEE, WITH SLIPPER SOCKS ON EACH FOOT.
--- NOTE | 2016-11-16 21:06 | NUR ---
PATIENT THROW UP, NURSE NOTIFIED. GAVE WATER TO TINA.
--- NOTE | 2016-11-16 21:08 | NUR ---
FILLED CRY CUFF. FILLED ICE WATER CUP.
--- NOTE | 2016-11-16 21:54 | NUR ---
PT VOMITED UP BLACK GRAINY VOMITUS NEAR 2109. NOTIFIED DR DEL RIO AND RECEIVED ORDERS. TO STOP THE XARELTO, GIVE MED FOR VOMITING, GET LABS IN AM, AND HAVE DR. RUANO, HOSPITALIST CONSULT IN AM. WILL NOTIFY DR. DEL RIO IF PT VOMITS AGAIN. PT CONTINUES TO BE CONFUSED, SAYS HE WENT HOME TODAY AND WONDERS WHY HE IS HERE, AND WHERE IS HE. REASSURED PT AND ORIENTATED. REMINDED PT NOT TO GET UP ON HIS OWN, THAT HE NEEDS HELP. HAS USED THE URINAL ONCE SO FAR THIS SHIFT.
--- NOTE | 2016-11-16 23:00 | NUR ---
PT STATES HE FEELS BETTER. HAS NOT VOMITED AGAIN. REMAINS CONFUSED, WONDERING WHAT HE IS DOING HERE. LEFT KNEE EDILIA REMAIN INTACT, DENIES PAIN. OFFERED AND ACCEPTED WATER.
--- NOTE | 2016-11-17 01:00 | NUR ---
EYES CLOSED, RESP EVEN AND UNLABORED. HAS BEEN MOSTLY AWAKE, WITH PERIODS OF SLEEPING. USED URINAL SINCE MIDNIGHT.
--- NOTE | 2016-11-17 03:18 | NUR ---
CAUGHT PT TRYING TO GET OUT OF BED, NEEDED TO USE THE URINAL. ASSISTED INTO BED AND GAVE THE URINAL. EASY TO REDIRECT. ONCE CARE GIVEN, HE WENT BACK TO SLEEP.
--- NOTE | 2016-11-17 05:20 | NUR ---
HAS BEEN SNORING, FOR PAST HOUR. WOKE FOR LABS, AT FIRST TOLD LAB NO, BECAUSE HE DIDN'T KNOW WHY IT "NEEDED" DONE. REASSURED HIM, ORIENTATED HIM TO CURRENT DAY, CONTINUES TO BE CONFUSED, ABOUT WHERE HE IS AND WHY HE IS HERE. NO SIGNS OF PAIN, AND PT DENIES PAIN.
--- NOTE | 2016-11-17 06:17 | NUR ---
CURRENTLY EYES CLOSED, RESP EVEN AND UNLABORED. PT VOMITED BEGINING OF SHIFT 400 CC BLACK, GRAINY EMESIS, WHICH TESTED POSITVE FOR OCCULT BLOOD. DR. DEL RIO NOTIFIED, ORDERES RECEIVED. NO FURTHER VOMITING OCCURRED. PT REMAINED CONFUSED ENTIRE SHIFT, NOT KNOWING WHY HE WAS HERE NOR WHERE HE WAS. HAS USED URINAL APPROPRIATELY THIS SHIFT, DID TRY TO GET UP X 1 WITHOUT HELP. LEFT KNEE WELL APPROXIMATED, EDILIA INTACT, WITH NO SIGN OF INFECTION.
--- NOTE | 2016-11-17 07:10 | NUR ---
PT RESTING IN BED EYES CLOSED RR EVEN NO DISTRESS NOTED. PT APPEARS TO BE SLEEPING AT THIS TIME
--- NOTE | 2016-11-17 08:00 | NUR ---
one person assist with walker to bathroom. bed bath, oral care, clean linens done. patient up to chair with feet up scd's, cryo cuff, and chair alarm on. nurse in room. call button in reach.
--- NOTE | 2016-11-17 08:33 | NUR ---
PT SITTING UP IN RECLINER AT THIS TIME. ALERT, REPORTS NO PAIN AT THIS TIME
--- NOTE | 2016-11-17 09:41 | NUR ---
PT OFF THE UNIT WITH USAMA RO TO O.R. SUITE.
--- NOTE | 2016-11-17 10:41 | NUR ---
[phone] YR OLD MALE PATIENT ADMITTED TO CCU FROM OR VIA STRETCHER WITH DX OF S/P REVISION LEFT KNEE, GIB, POST ARREST. UPON ADMIT TO CCU PATIENT IS INTABATED. ETT IS TAPED 25 AT LIP, SIZE 7 . SETTING ON VENT AC-19,FIO2-40,TV-400. SUCTIONED FOR MOD AMOUNT OF THICK DARK SPUTUM. LUNGS ARE COURSE THROUGOUT. WRIST RESTRAINTS APPLIED PER PROTOCOL. RANKIN CATH PLACED WITHOUT PROBLEMS WITH RETURN OF CLEAR YVES URINE. PRBC'S INFUSING. RBC'S WERE HUNG IN OR. NG TO LCS WITH RETURN OF SMALL AMOUNT OF BLACK CONTENTS. NORMAL SALINE BOLUS HUNG PER ORDERS. PROTONIX 80 MG IV GIVEN FOLLOWED BY PROTONIX GTT AT 8 MG/HR. VERSED GTT HUNG AT 1.3 MG HR TO RASS SCORE OF -1. 18 GA IV STARTED TO RAC. 1115. FIRST UNIT OF PRBC'S COMPLETE. 2 UNIT HUNG. SEE BLOOD SHEET FOR VITAL SIGNS. PLAN IS TO TRANSFER PATIENT TO [facility]. DR. RUANO HAS BEEN IN UNIT.
--- NOTE | 2016-11-17 11:10 | NUR ---
TRANEXAMIC ACID HUNG PER ORDERS.
--- NOTE | 2016-11-17 12:15 | NUR ---
FLIGHT TEAM HERE. REPORT TO THEM. SECOND UNIT OF PRBC'S INFUSED. RECIEVED 530 ML OF NORMAL SALINE. IVF NOW AT 50 ML/HR. VERSED GTT INCREASED TO 3 MG.
--- NOTE | 2016-11-17 12:43 | NUR ---
TO [facility] VIA [employer].
--- NOTE | 2016-11-17 12:50 | NUR ---
REPORT CALLED TO [facility].
--- NOTE | 2016-11-17 14:19 | NUR ---
WAS CALLED TO OR FOR CODE BLUE. PT'S WAS IN SURGERY WAITING RM. JAYJAY KING WITH HER. DR LAST HAD JUST LEFT, UPDATING ON PT'S CONDITION. STAYED WITH PT, AT 'S REQUEST CONTACTED HER DAUGHTER CHANA, AND BROUGHT HOWARD BURGESS IN ALSO. PT IN SERIOUS CONDITION, CONCERN THAT HE IS TOO UNSTABLE TO TRANSPORT. CODE HAPPENED DURING EGD, LOOKING FOR BLEED. CONTACTED SIS IN [place], SHE ARRIVED FOR SUPPORT. DAUGHTER IN [place]. I WAS ABLE TO HAVE DR RUANO UPDATE CHANA BY PHONE. 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 HAD PRAYER WITH JORDAN, PT TRANSFERRED FROM CCU TO [facility]. GOD CHAO
--- NOTE | 2016-11-18 09:57 | OR ---
[facility] [address] [place], [place] [address] Signed DATE OF SERVICE: 11/17/2016 PREOPERATIVE DIAGNOSIS: Hematemesis. Anemia. Recent knee replacement, on Xarelto. POSTOPERATIVE DIAGNOSIS: Hematemesis. Anemia. Recent knee replacement, on Xarelto. PROCEDURE PERFORMED: Esophagogastroduodenoscopy without biopsy. ESTIMATED BLOOD LOSS: None. FINDINGS: Kyle had large amount of black liquid fluid in his stomach with large food particles. We saw no bright red blood and no obvious source of bleeding. I could not pass the scope through the pyloric channel because of obstruction by the food particles. He did vomit black blood before we started the procedure without any dr isaias park on board, and we consequently had to have our anesthesia provider come, and we ended up intubating him, given some atropine and so forth, and he is now hemodynamically stable, but he is in the ICU. Of course, I have discussed this with his several times at this point. INDICATIONS: Kyle is an 89-year-old gentleman I have known for quite some time from previous procedures. More recently, he has been in the hospital 9 days ago for his left knee replacement. He has been on Xarelto and in our swing bed here in the hospital. Last night, apparently, he had some hematemesis, and I was asked to see him earlier this morning in that regard. He has been up most of the night, and he is quite tired but otherwise seems to be hemodynamically stable, and he has been made n.p.o. overnight. In addition, our internal medicine service has been following as well. I went down. I met with Kyle and his . He actually had been up walking around earlier this morning, and he was sitting in his chair, but he was quite slee p y. After talking with Kyle and his , we decided to bring him down to our endoscopy suite for an upper endoscopy to see if there is any source of bleeding that we could find. I reviewed upper endoscopy with his , and of course, he has been through several endoscopies previously. She is well aware of that along with its risks, including, but not limited to, gas bloating, crampy abdominal pain, bleeding, perforation requiring surgery, and missed diagnosis. They had expressed understanding and wished to proceed. Electronically Signed By: JOSE MARTIN LAST MD 11/18/16 0957 PATIENT NAME: CALIN LEE OPERATIVE REPORT DATE OF : [birth year] PHYSICIAN: JOSE MARTIN LAST MD REPORT #: [id number] REPORT IS CONFIDENTIAL AND NOT TO BE RELEASED WITHOUT AUTHORIZATION [facility] [address] [place], [place] [address] Signed PROCEDURE NOTE: Kyle was taken down to our endoscopy suite and placed in a supine semi-recumbent position. We anesthetized the posterior oropharynx with Hurricaine spray. We withheld our usual Versed and fentanyl. We simply passed the scope in to the posterior oropharynx. He subsequently had large amounts of black liquid particulate gastric contents that he vomited. We suctioned this out and had him rotated into the left lateral decubitus position. We brought her anesthesia provider in, and he subsequently did that again, and so he needed to be intubated to protect the airway better. He did get a little hypotensive and bradycardic, so he required some atropine, and I think some Hernán-Synephrine was given as well. In the meantime, I went out to talk to his to explain to her that he was in a difficult position. She said he did want any heroic measures but would accept at least intubation in the short-term along with CPR. When I went back in the room, we went ahead and gave him a little propofol j ust to relax him enough to pass the scope. I encountered some liquid black fluid in his esophagus which I easily suctioned out, and we entered the stomach. The stomach had large amounts of black liquid fluid with particulate food matter. We passed our way down to the antrum, and we made multiple attempts to irrigate the area and suction that out, so we could pass into the duodenal bulb and out into the duodenum without success. We really could not see any edematous changes of the antrum, and we never did s e e the opening to the pylorus, so it is always possible that it is inflamed enough that it is closed, but we are not sure at this point. We did not see any fresh blood in the stomach, and we saw no ulcerations in the antrum or the body of the stomach. After this, I withdrew the scope and suctioned out the gas. Buster tolerated the procedure quite well. Afterwards, I went back out and spoke with his to explain what we found and that he still remains in a very serious situation. We are going to leave him intubated and take him into the ICU for ongoing resuscitation. She had expressed understanding and agreed to above plan. MD FABIAN Ren/Priscilla /[id number] cc: Paul Madrigal MD Electronically Signed By: JOSE MARTIN LAST MD 11/18/16 0957 PATIENT NAME: CALIN LEE OPERATIVE REPORT DATE OF : [birth year] PHYSICIAN: JOSE MARTIN LAST MD REPORT #: [id number] REPORT IS CONFIDENTIAL AND NOT TO BE RELEASED WITHOUT AUTHORIZATION [address] [place], [place] [address] Signed Michael Duque MD Electronically Signed By: JOSE MARTIN LAST MD 11/18/16 0957 PATIENT NAME: CALIN LEE OPERATIVE REPORT DATE OF : [birth year] PHYSICIAN: JOSE MARTIN LAST MD REPORT #: [id number] REPORT IS CONFIDENTIAL AND NOT TO BE RELEASED WITHOUT AUTHORIZATION
--- NOTE | 2016-11-18 09:57 | CONS ---
[facility] [address] [place], [place] [address] Signed DATE OF SERVICE: 11/17/2016 REFERRING PHYSICIANS: Michael Duque MD. CHIEF COMPLAINT: Hematemesis. HISTORY OF PRESENT ILLNESS Kyle is an 89-year-old gentleman, who decided knee replaced. He has been recovering in our swing bed, he is now postop day 9. He has been on his routine Xarelto. Last night, he did have some hematemesis of the Xarelto was stopped and he was made n.p.o. In the meantime, he has done fine. He is tired this morning. As he was up most of the night, although he has been up walking and did take some Prot rey. I was asked by the orthopedic service to come see him for an upper endoscopy. I know Kyle and his previously as I have removed skin cancers from his arms. ALLERGIES: Codeine. MEDICATIONS: Acidophilus, aspirin, multivitamin, diltiazem, fish oil, hydrochlorothiazide, omeprazole vitamin B and vitamin D. PAST MEDICAL HISTORY: He is hard of hearing, requiring hearing aid. 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 PAST SURGICAL HISTORY: He has had skin lesions removed. His neck surgeries appendectomy, cholecystectomy, vasectomy, back surgery with rods in place. Total shoulder replacement bilaterally with Dr. Musa, a left knee replacement, and right wrist surgery. SOCIAL HISTORY: He likes a little tea each day and used to smoke. He smoked up to a pack of cigarettes a day, but quit way back in the 1950s. He does not chew tobacco. He does not drink alcohol. He does not use drugs. He had been a longer most of his life. He is and has three children. Dr. Paul Madrigal. He is primary care provider and Dr. Michael Duque is his orthopedic surgeon. FAMILY HISTORY: His father had heart failure and his mother had breast cancer. REVIEW OF SYSTEMS: He had 1 0 systems reviewed with the help of his today. Really nothing new other than his knee replacement. Electronically Signed By: JOSE MARTIN LAST MD 11/18/16 0957 PATIENT NAME: CALIN LEE CONSULTATION DATE OF : [birth year] PHYSICIAN: JOSE MARTIN LAST MD REPORT #: [id number] REPORT IS CONFIDENTIAL AND NOT TO BE RELEASED WITHOUT AUTHORIZATION [facility] [address] [place], [place] [address] Signed PHYSICAL EXAMINATION: VITAL SIGNS: His blood pressure is 129/65, his heart rate 68, his respiratory rate is 18, his temperature is 98.5, he is 90 6% on room air. He is 5 feet 7 inches, and 73 kg. GENERAL: She is an 89-year-old gentleman, who appears his stated age. He has had his ideal body weight. He tired today. LUNGS: Clear to auscultation. HEART: Regular rate and rhythm. ABDOMEN: Benign. LABORATORY DATA: His white blood count 9.1, hemoglobin was 10.6, is now 9.4, his platelet count was 877 1000 that is up to 170 neutrophils 60, BUN is up a little 42 with creatinine 0.96. Liver function tests are negative. Albumin is 2.7. Buster is an 89-year-old gentleman, who just had his knee replaced and had been on Xarelto. He did have some hematemesis with a drop in his hemoglobin and his platelet count although that seems to be recovering. He has otherwise been hemodynamically stable. I think it is probably bernal to go ahead and check his stomach for gastritis and ulcer at this time. He will stay on his Protonix. I reviewed endoscopy with Kyle and his and they have been through this before vary from a with the process. They understand there is risk including, but not limited to gas bloating, crampy, abdominal pain, bleeding, perforation requiring surgery, and missed diagnosis. This also need for IV conscious sedation. They have expressed understanding, would like to proceed. MD FABIAN Ren/Priscilla /[id number] cc: MD Michael Ren MD Electronically Signed By: JOSE MARTIN LAST MD 11/18/16 0957 PATIENT NAME: CALIN LEE CONSULTATION DATE OF : [birth year] PHYSICIAN: JOSE MARTIN LAST MD REPORT #: [id number] REPORT IS CONFIDENTIAL AND NOT TO BE RELEASED WITHOUT AUTHORIZATION
--- NOTE | 2016-11-18 18:59 | EKG ---
[facility] [address] [facility] [place], [place] [address] Signed Sinus tachycardia Otherwise normal ECG No previous ECGs available Confirmed by JANE RUANO MD ([id number]) on 11/18/2016 6:59:06 PM Electronically Signed By: JANE RUANO MD 11/18/16 1859 PATIENT NAME: CALIN LEE Electrocardiogram DATE OF : [birth year] PHYSICIAN: JANE RUANO MD REPORT #: [id number] REPORT IS CONFIDENTIAL AND NOT TO BE RELEASED WITHOUT AUTHORIZATION
== END 2016-11-17 12:43 | disposition short-term general hospital (02) | DRG 377 ==
LOC: MS 06:15 → CCU 11-17 10:35
PROVIDERS: Colon & Rectal Surgery; ADMIT Specialist
PROC: 0BH17EZ Insertion of Endotracheal Airway into Trachea, Via Natural or Artificial Opening (ICD-10-PCS; 2016-11-17)
PROC: 5A0935Z Assistance with Respiratory Ventilation, Less than 24 Consecutive Hours (ICD-10-PCS; 2016-11-17)
PROC: 5A12012 Performance of Cardiac Output, Single, Manual (ICD-10-PCS; 2016-11-17)
PROC: 0DJ08ZZ Inspection of Upper Intestinal Tract, Via Natural or Artificial Opening Endoscopic (ICD-10-PCS; principal; 2016-11-17 09:30)
DX: K92.2 Gastrointestinal hemorrhage, unspecified (principal); J96.00 Acute respiratory failure, unspecified whether with hypoxia or hypercapnia; G93.41 Metabolic encephalopathy; T17.918A Gastric contents in respiratory tract, part unspecified causing other injury, initial encounter; Z96.652 Presence of left artificial knee joint; I10 Essential (primary) hypertension; R73.03 Prediabetes; K21.9 Gastro-esophageal reflux disease without esophagitis; G62.9 Polyneuropathy, unspecified; Z87.891 Personal history of nicotine dependence; K92.0 Hematemesis; Z79.01 Long term (current) use of anticoagulants; Z79.899 Other long term (current) drug therapy; G30.9 Alzheimer's disease, unspecified; F02.80 Dementia in other diseases classified elsewhere, unspecified severity, without behavioral disturbance, psychotic disturbance, mood disturbance, and anxiety
CPT/HCPCS: 36415; 36430; 71010; 71020; 80053; 81001; 82803; 83735; 85025; 86850; 86900; 86901; 86920; 93005; 93010; 94760; 97110; 97116; 97530; 99152; 99153; J0461; J2250; J2370; J2704; J3010; J7040; J7050; J7120; P9016

== ENCOUNTER 2016-11-23 12:29 | Inpatient (IN) | payer MEDICARE, OTHER ==
[~2016-11-23] VITALS: Ht 170.2 cm; Wt 73.5 kg
--- NOTE | 2016-11-23 13:00 | NUR ---
PT ARRIVED VIA GROUND TRANSPORT TO ROOM 111. AT THIS TIME. PT ALERT AND ORIENTED. HE IS DISORIENTED TO ALL BUT SELF AND FAMILY. COOPERATIVE, ABLE TO REORIENT, HE DOES NOT REMEMBER ANYTHING FROM LAST WEEK. SPOUSE AND SISTER IN ROOM AT BEDSIDE
--- NOTE | 2016-11-23 15:37 | NUR ---
PT VOIDED INCONT AND MISSED URINAL, BEDCHANGE AND TURNED AND REPOSITIONED NEW SAGRARIO PLACED AND BAIRRER CREAM PLACED ON BUTTOCKS STAGE 1 PRESSURE SORE ON LEFT BUTTOCKS.
--- NOTE | 2016-11-23 17:11 | NUR ---
PT ARRIVED VIA AMBULANCE TRANSFER AT 1300 TO ROOM 111. PT ALERT, DISORIENTED, COOPERATIVE, ABLE TO REORIENT FAMILY AT BEDSIDE. SCDS ON. PT GIVEN AND ENJOYED APPLE CLEAR ENSURE THICKENED NECTOR THICK. PT HAS STAGE 1 PRESSURE ULCER HAS BEEN REPOSITIONED Q2 HOURS, BARRIER CREAM PLACED.
--- NOTE | 2016-11-23 19:25 | NUR ---
IN TO MEET PT, REPORT RECV'D. PT IN BED, FAMILY AT BEDSIDE. PT PLEASANT AND ORIENTED. NO FURTHER NEEDS AT THIS TIME. WATER AND CALL LIGHT WITH IN REACH.
--- NOTE | 2016-11-24 00:38 | NUR ---
IN TO CHECK ON PT, PT SLEEPING, NO APPARENT DISTRESS NOTED. CALL LIGHT WITH IN REACH.
--- NOTE | 2016-11-24 02:57 | NUR ---
IN TO CHECK ON PT. PT APPEARS TO BE SLEEPING. CALL LIGHT WITH IN REACH.
--- NOTE | 2016-11-24 04:16 | NUR ---
PT HAS HAD UNEVENTFUL SHIFT, RESTED WELL. PT WAS ALERT AND PLEASANT AT THE BEGINNING OF SHIFT. SCDS IN PLACE. PT USES URINAL. PT HAS A STAGE 1 PRESSURE ULCER ON L BUTTUCK, REPOSITIONED Q2 HOURS. MEDICATION GIVEN IN APPLESAUCE, WHICH PT ENJOYS.
--- NOTE | 2016-11-24 07:17 | NUR ---
PT ALERT AND ORIENTED, PLEASANT, COOPERATIVE
--- NOTE | 2016-11-24 08:15 | NUR ---
MED REC COMPLETE
--- NOTE | 2016-11-24 08:59 | NUR ---
PT SITTING UP IN RECLINER WATCHING TV. CHAIR ALARM ON.
--- NOTE | 2016-11-24 09:28 | NUR ---
CLEAR APPLE ENSURE GIVEN TO PT THICKEN TO NECTOR THICK. PT REPORTS THAT HE ENJOYS THESE DRINKS
--- NOTE | 2016-11-24 12:31 | NUR ---
PT IMPROVING. JAYJAY RITCHIE FELT HE IS CLEARER WITH HIS THOUGHTS AND COGNITIVE ABILITY SINCE ARRIVING YESTERDAY. ANTONELLA IN WITH HIM, ALWAYS BY HIS SIDE. THE LAST COUPLE OF WEEKS HAVE TAKEN A TOLL ON HER. I ENCOURAGED HER TO TAKE A REST WHILE SHE IS HERE, AND GOT HER A PILLOW, AND JAYJAY CORNELL BROUGHT IN A BLANKET. SHE SEEMED VERY APPRECIATIVE. THEIR DA[place] TO HELP OUT. THEY BOTH EXPRESSED FEELING A LITTLE GUILTY, I ENCOURAGED THEM TO BE THANKFUL THE KIDS WANT TO BE NEAR TO HELP. PRAYED WITH THEM BOTH. WILL CONTINUE TO FOLLOW
--- NOTE | 2016-11-24 13:28 | NUR ---
PT SITTING UP IN RECLINER VISITING WITH GUESTS IN ROOM. NO DISTRESS NOTED.
--- NOTE | 2016-11-24 16:04 | NUR ---
PT RESTING IN RECLINER RR EVEN. NO DISTRESS NOTED. PT APEARS TO BE SLEEPING.
--- NOTE | 2016-11-24 18:11 | NUR ---
PT HAS BEEN UP TO CHAIR MOST OF THE DAY, WORKED WITH PHYSICAL THERAPY. OCCUPATIONAL THERAPY. HE HAS REPORTED NO PAIN OVER SHIFT EXCEPT LEFT GREAT TOE WHEN STANDING. HE HAD BM TODAY. EATING WELL, CLEAR ENSURES TO SUPPLEMENT.
--- NOTE | 2016-11-24 19:45 | NUR ---
IN TO SEE PT, PT UP IN CHAIR. ASSESSMENT DONE. CRYO CUFF AND TEDS IN PLACE. NO FURTHER NEEDS AT THIS TIME. CALL LIGHT WITH IN REACH.
--- NOTE | 2016-11-24 21:30 | NUR ---
PT UP TO BSC WITH 2 PERSON ASSIST AND FWW. PT TOLERATED WELL. SMALL SOFT BM. PT ASSISTED BACK TO CHAIR. PT STATES HE IS MORE COMFORTABLE IN THE CHAIR. CRYO CUFF IN PLACE. NO FURTHER NEEDS AT THIS TIME. CALL LIGHT WITH IN REACH.
--- NOTE | 2016-11-24 23:07 | NUR ---
IN TO CHECK ON PT, PT SLEEPING IN CHAIR. NO APPARENT DISTRESS NOTED. CRYO CUFF IN PLACE. CALL LIGHT WITH IN REACH.
--- NOTE | 2016-11-25 00:43 | NUR ---
IN TO CHECK ON PT, PT SLEEPING IN CHAIR. WATER AT BEDSIDE. CALL LIGHT WITH IN REACH.
--- NOTE | 2016-11-25 01:50 | NUR ---
PT UP TO BSC WITH 2 PERSON ASSIST AND FWW. PT C/O PAIN IN HIS L KNEE AND CHEST. PRN MEDICATION GIVEN. ASSISTED BACK TO BED. NO FURTHER NEEDS AT THIS TIME. CRYO CUFF FILLED AND IN PLACE. CALL LIGHT WITH IN REACH.
--- NOTE | 2016-11-25 04:23 | NUR ---
PT HAS HAD AN UNEVENTFUL SHIFT, SLEPT WELL. PT UP TO THE CHAIR FOR THE BEGINNING OF THE SHIFT. 2 PERSON ASSIST WITH FWW. TYLENOL GIVEN FOR PAIN. NECTAR THICK LIQUIDS, TOLERATING WELL. BM TONIGHT.
--- NOTE | 2016-11-25 05:15 | NUR ---
IN TO CHECK ON PT, PT AWAKE TO USE URINAL. NO FURTHER NEEDS AT THIS TIME. CALL LIGHT WITH IN REACH.
--- NOTE | 2016-11-25 07:19 | NUR ---
BEDSIDE REPORT FROM KHAI RO AND PAM RO. PT RESTING IN BED RR EVEN
--- NOTE | 2016-11-25 07:48 | NUR ---
PATIENT IS UP IN CHAIR. DID A COMPLETE LINEN CHANGE. EMPTIED TRASH. SET UP BREAKFAST. CALL LIGHT IN REACH. PATIENT IS DOING OKAY.
--- NOTE | 2016-11-25 08:48 | NUR ---
TRANSITIONAL CARE TEAM IN PT ROOM AT THIS TIME FOR ROUNDING CARE PLAN.
--- NOTE | 2016-11-25 10:32 | NUR ---
STOPPED IN PATIENT'S ROOM TO SAY HI. A NUTRITION CONSULT WAS ORDERED AND LOOKS LIKE IT'S FOR A STAGE 1 PRESSURE ULCER ON L BUTTOCK. VISITING AND ANOTHER PERSON VISITING, MIGHT BE THE SON. PATIENT SITTING IN CHAIR. HE SAYS HE PROBABLY LOST WEIGHT THE PAST 16 DAYS BEING IN HOSPITALS. HE IS EATING DECENTLY THOUGH HE'S NOT TOO FOND OF THE PUREED DIET. THIS WAS IMPLEMENTED THE PAST 8 DAYS OR SO DUE TO MODERATE OROPHARYNGEAL DYSPHAGIA. HE ENJOYS THE APPLE FLAVORED ENSURE CLEAR NECTAR THICKENED. STATES HE IS EATING EVERYTHING THEY BRING HIM SO HIS APPETITE IS GOOD. NO NUTRITION INTERVENTION DONE AT THIS TIME. WILL CONTINUE TO MONITOR WHILE HERE.
--- NOTE | 2016-11-25 11:48 | NUR ---
PT UP WITH PHYSICAL THERAPY AMBULATING IN ROOM.
--- NOTE | 2016-11-25 13:02 | NUR ---
MET WITH PT'S ANTONELLA. SHE WAS WALKING IN HALLS, AND LOOKED LIKE SHE COULD USE SOME COMPANY. CONFESSED SHE FORGOT HER CANE, AND IS HEADED TO [facility] [address] [address] FOR TREATMENT LATER TODAY. VISITED WITH HER AND SHE ADMITTED AGAIN SHE FEELS GUILTY FOR DAUGH[place]ANA [place]. I TOLD HER SHE IS HONORING HER PARENTS, WHICH WAS A SCRIPTURE SHE WAS TAUGHT. DON'T FEEL GUILTY, BE THANKFUL THEY ARE WILLING AND ABLE TO DO SO. SHE AGREED, SHED A TEAR AND THANKED ME FOR VISITING. WILL CONTINUE TO FOLLOW
--- NOTE | 2016-11-25 14:21 | NUR ---
PT SITTING UP IN RECLINER, CLEAR APPLE ENSURE GIVEN WITH NECTOR THICK. HE HAD NO COMPLAINTS TO PAIN, NO REQUESTS AT THIS TIME
--- NOTE | 2016-11-25 17:40 | NUR ---
PT HAS BEEN UP TO AMBULATE IN ROOM WITH PHYSICAL THERAPY REPORTED PAIN AT LEFT GREAT TOE, AND CHEST DESCRIBING PAIN AT RIB FX. HE SHOWERED TODAY. REPORTS NO PAIN AT REST. GOOD APPETITE. SWALLOWING PILLS WHOLE WITH NO PROBLEMS. CRYO CUFF TO LEFT KNEE. REPOSITIONED FREQUENTLY FOR SKIN INTEGRITY.
--- NOTE | 2016-11-25 19:15 | NUR ---
IN TO MEET PT, REPORT RECV'D FROM CHAU RO. PT UP TO CHAIR. WATER AT BEDSIDE. NO FURTHER NEEDS AT TIS TIME. CALL LIGHT WITH IN REACH.
--- NOTE | 2016-11-25 22:01 | NUR ---
IN TO CHECK ON PT, PT SLEEPING IN CHAIR. NO APPARENT DISTRESS NOTED. RESPIRATION EVEN AND UNLABORED. CALL LIGHT WITH IN REACH.
--- NOTE | 2016-11-25 22:36 | NUR ---
PT CALLED FOR HELP TO LOCATE CANE. PT NOTIFIED THAT HE HAS BEEN USING A WALKER WHILE IN THE HOSPITAL. PT REORIENTED TO TIME AND PLACE. PT UP IN CHAIR. OFFERED TO HELP BACK TO BED, PT STATES HE IS COMFORTABLE IN THE CHAIR. NO FURTHER NEEDS AT THIS TIME. ADVISED PT TO CALL IF HE NEEDS ANYTHING. CALL LIGHT WITH IN REACH.
--- NOTE | 2016-11-26 00:35 | NUR ---
IN TO CHECK ON PT, PT SLEEPING IN CHAIR. NO APPARENT DISTRESS NOTED. CALL LIGHT WITH IN PLACE. WILL CONTINUE TO MONITOR.
--- NOTE | 2016-11-26 02:44 | NUR ---
IN TO CHECK ON PT, PT AWAKE UP IN CHAIR. BLANKETS REPOSITIONED. OFFERED TO ASSIST PT TO BED, PT STATES "NO I AM ALRIGHT HERE." WATER AT BEDSIDE. CALL LIGHT WITH IN REACH.
--- NOTE | 2016-11-26 04:16 | NUR ---
PT UP TO BSC WITH 2 PERSON ASSIST AND FWW. TOLERATED WELL. BARRIER CREAM APPLIED. ASSISTED PT BACK TO CHAIR. CRYO CUFF FILLED. NO FURTHER NEEDS AT THIS TIME. CALL LIGHT WITH IN REACH.
--- NOTE | 2016-11-26 04:21 | NUR ---
PT HAS HAD UNEVENTFUL SHIFT, SLEPT IN CHAIR. NO C/O PAIN. UP TO BSC WITH 2 PERSON ASSIST AND FWW. TOLERATING NECTAR THICK LQUID. PT HAS BEEN MORE ORIENTED DURING THE SECOND HALF OF SHIFT. STAGE 1 ULCER ON BUTTOCKS, BARRIER CREAM APPLIED.
--- NOTE | 2016-11-26 07:10 | NUR ---
BEDSIDE HANDOFF REPORT RECEIVED FROM HOLLOW WARE MAKER RN. PT SLEEPING IN CHAIR, LEFT UNDISTURBED.
--- NOTE | 2016-11-26 08:34 | NUR ---
UP IN CHAIR EATING BREAKFAST. CRYO CUFF STILL HAS ICE. ICE WATER REFILL. EMPTY URNAL. EMPTY GARBAGE. UPDATE [place]. CHAIR ALARM ON. CALL LIGHT IN REACH.
--- NOTE | 2016-11-26 08:53 | NUR ---
PT RETSING IN CHAIR. PT ORIENTED TO SELF AND PLACE. PT ON 2L NC, LUNG SOUNDS WITH RHONCHI TO RIGHT SIDE AND LEFT BASE, CLEAR LEFT UPPER, ENCOURAGED FLUTTER VALVE. PT TOLERATING PUREED DIET, DENIES NAUSEA. PT WITH EDEMA TO BLE, AROUND ANKLES, 2+. PT COMPLAINT OF PAIN TO RIGHT BACK/SIDE. DISCUSSED PLAN OF CARE WITH PT. PT DENIES NEEDS AT THIS TIME.
--- NOTE | 2016-11-26 11:34 | NUR ---
PT SITTING IN CHAIR. SEEMS TO BE COMFORTABLE THERE. PT APPEARS SOMEWHAT MORE AWARE TODAY THAN YESTERDAY. A LITTLE SLOW TO RESPOND, BUT CLEAR RESPONSES, AND AND WELL THOUGHTOUT. HIS WILL PROBABLY STAY HOME TODAY-EYE SURGERY FOR HER YESTERDAY. HE SEEMS FINE WITH THIS. HIS SENIOR PROJECT ACCOUNTANT WAS BY EARLIER MORNING-PT REMEMBERED. HE SAID HE WAS THANKFUL THAT THEIR DAUGH[place] TO HELP. PT REQUESTED PRAYER. WILL CONTINUE TO FOLLOW
--- NOTE | 2016-11-26 11:56 | NUR ---
UP I CHAIR. TOOK BREAKFAST TRAY. EMPTY URNIL. HE BRUSHED DENCHERS. PHYSICAL THERAPY WALKED AND TOLIET PATIENT.
--- NOTE | 2016-11-26 14:23 | NUR ---
PT ASSISTED TO RESTROOM FOR BM. L BUTTOCK WOUND ASSESS, BLANCHABLE REDNESS, BARRIER CREAM APPLIED. PT ASSISTED BACK TO CHAIR. PT DENIES NEEDS AT THIS TIME.
--- NOTE | 2016-11-26 14:32 | NUR ---
HELPED YARELI AMBULATE FROM CHAIR TO BATHROOM AND BACK. EMPTY URNIL. CHECK CRYO CUFF. EMPTY GARBAGE.
--- NOTE | 2016-11-26 16:49 | NUR ---
PT SITTING IN CHAIR. PT PROVIDED WITH FRESH WATER. PT DENIES NEEDS AT THIS TIME.
--- NOTE | 2016-11-26 17:25 | NUR ---
PT ORIENTED TO SLEF AND PLACE, CALLING APPROPRIATELY, COOPERATIVE WITH CARES. PT ON 2L NC, LUNG SOUNDS WITH RHONCHI/COARSE, ENCOURAGE FLUTTER VALVE. PT WORKED WITH PHYSCIAL THERAPY, 1-2 PA WITH FWW AND GAIT BELT. S.T. SWALLOW EVAL COMPLETED, ADVANCED TO CHOPPED DIET WITH THIN LIQUIDS, TOLERATING WELL. PT VOIDING, QS. HAD MEDIUM BM TODAY. LIDOCAINE PATCH TO LEFT CHEST.
--- NOTE | 2016-11-26 19:39 | NUR ---
RECEIVED REPORT FROM DAY SHIFT RN. PATIENT IS RESTING IN THE RECLINER. PATIENT DENIES ANY PAIN AT THIS TIME. PATIENT HAS CRYO IN PLACE ON HIS RIGHT KNEE. PATIENT DENIES ANY NEEDS AT THIS TIME. PATIENTS CHAIR ALARM IS ON. PATIENTS CALL LIGHT IN REACH.
--- NOTE | 2016-11-26 20:15 | NUR ---
PATIENTS URINAL DUMPED PER REQUEST. PATIENT DENIES ANY FURTHER NEEDS CALL LIGHT IN REACH.
--- NOTE | 2016-11-26 22:13 | NUR ---
PATIENT ASSESMENT COMPLETED. PATIENT RATES PAIN AT A 1/10. PATIENT DENIES ANY THE NEED FOR ANY PAIN MEDICATION AT THIS TIME. PATIENT IS RESTING IN RECLINER WATCHING TV. PATIENT IS ORIENTED TO SELF, AND SURROUNDINGS THAT IS ALL. PATIENTS SURGICAL SITE ON HIUS RIGHT KNEE IS OPEN TO AIR AND EDILIA ARE PRESENT, AND IS WELL APPROXIMATED. PATIENT IS ON 2L VIA NC. PATIENT ENCOURAGE TO COMLETE IS AND CORONET. PATIENT WOULD LIKE TO SLEEP IN THE RECLINER. PATIENT HAS A CHAIR ALARM IN PLACE HE IS FORGETFUL AT TIMES. PATIENT HAS A PILLOW PLACED UNDER RIGHT BUTTOCK. PATIENT DENIES ANY NEEDS AT THIS TIME. CALL LIGHT IS WITHIN REACH.
--- NOTE | 2016-11-27 00:16 | NUR ---
PATIENT CONTINUES TO REST IN RECLINER WIH EYES CLOSED. PATIENTS BREATHING IS EVEN AND UNLABORED, RR 17. CALL LIGHT IN REACH.
--- NOTE | 2016-11-27 02:11 | NUR ---
PATIENT CONTINUES TO REST IN THE RECLINER. PATIENTS CRYO REFILLED WITH ICE. PATIENT DENIES ANY PAIN AT THIS TIME. CALL LIGHT IN REACH.
--- NOTE | 2016-11-27 04:01 | NUR ---
PATIENTS CRYO REFILLED WITH ICE PER DIRECTIONS. PATIENT DENIES ANY PAIN AT THIS TIME. CALL LIGHT IS WITHIN REACH.
--- NOTE | 2016-11-27 05:04 | NUR ---
PATIENT RESTED ON AND OFF THROUGHOUT THE SHIFT. PATIENT DENIED ANY PAIN. PATIENT IS ON A DYSHPAGIA CHOPPED DIET AND TOLERATING IT WELL. PATIENT IS ON 2L VIA NC. PATIENTS LEFT KNEE INCISION IS OPEN TO AIR, EDILIA IN PLACE, AND IS WELL APPROXIMATED. PATIENT HAS CRYO APPLIED TO LEFT KNEE. PATIENT ENCOURAGED TO DO IS AND CORONET. PATIENT HAS SCDS IN PLACE. PATIENT IS ON ASPIRATION PRECAUTIONS. PATIENT HAS NO IV. PATIENT IS ONLY ALERT TO SELF AND SURROUNDINGS. PATIENT HAS CHAIR ALARM IN PLACE.
--- NOTE | 2016-11-27 06:38 | NUR ---
PATIENTS CRYO REFILLED PER DIRECTIONS. PATIENT COMPLAINS OF DISCOMFORT IN HIS LEFT ANKLE. PATIENT GIVEN PRN TYLENOL PER ORDER. PATIENT REPOSTIIONED IN CHAIR. PATIENT DENIES ANY FURTHER NEEDS AT THIS TIME. CALL LIGHT IS WITHIN REACH.
--- NOTE | 2016-11-27 07:12 | NUR ---
RECIEVED BEDSIDE REPORT FROM JAYJAY AGUIRRE. PT SLEEPING IN CHAIR, FEET ELEVATED, BREATHING EVEN AND UNLABORED. WAKES EASILY WITH MOVEMENT. LEFT KNEE INCISION IS C/D/I, WELL APPROXIMATED. SMALL AMT OF BRUISING. 2L O2 VIA NASAL CANULA IN PLACE. CYROCUFF IN PLACE WITH NEW ICE.
--- NOTE | 2016-11-27 08:27 | NUR ---
PT UP IN CHAIR. PT IS ALERT, ORIENTATED X1. PT WOULD LIKE HIS TO COME IN.
--- NOTE | 2016-11-27 10:40 | NUR ---
PT IS UP WALKING WITH PHYSICAL THERAPY.
--- NOTE | 2016-11-27 12:11 | NUR ---
PT SITTING IN HIS FAVORITE PLACE-IN THE CHAIR. WE HAD A GOOD VISIT, BUT HE ADMITTED THAT HIS HASN'T BEEN ABLE TO COME BY AND VISIT FOR 2 DAYS. SHE HAD EYE SURGERY, AND HASN'T BEEN UP TO IT. HE MISSED HER, BUT UNDERSTANDS. PT IS ALERT AND ORIENTED, HIS SENSE OF HUMOR IS RETURNING,FOLLOWED WITH PRAYER. HE THANKED ME FOR VISITING
--- NOTE | 2016-11-27 15:00 | NUR ---
PATIENT AWAKE IN CHAIR. EMPTY GARBAGE. AM CARE. HELP WITH SHOWER. TOOK BREAKFAST AND LUCH TRAYS.
--- NOTE | 2016-11-27 16:26 | NUR ---
PT PLEASANT AND COOPERATIVE. PT SEEMS ORIENTATED, BUT VERY CONFUSED AND FORGETFUL. ABLE TO JOKE WITH STAFF. PT C/O RIB PAIN WITH MOVEMENT. PT WORKED WITH PHYSICAL THERAPY X2. RT WORKED WITH PT. PT TOLERATING CHOPPED DIET WELL WTIH THIN LIQUIDS. MULTIPLE VISITORS THIS SHIFT.
--- NOTE | 2016-11-27 19:42 | NUR ---
RECEIVED REPORT FROM DAY SHIFT RN. PATIENTIS RESTING IN RECLINER WATCHING TV. PATIENT DENIES ANY PAIN OR NEEDS AT THIS TIME. CRYO HAS SUFFICIENT ICE AND IS APPLIED TO LEFT KNEE. PATIENTS CALL LIGHT IS IN REACH.
--- NOTE | 2016-11-27 21:34 | NUR ---
PATIENT ASSESMENT COMPLETED. PATIENTS EVENING MEDICATIONS GIVEN PER ORDER. PATIENT DENIES ANY PAIN AT THIS TIME. PATIENT REPOSITIONED IN RECLINER AND PIPLLOW PLACED UNDER HIS RIGHT HIP. PATIENTS INCISION ON LEFT KNEE IS OPEN TO AIR AND EDILIA ARE PRESENT. INCISION IS WELL APPROXIMATED. PATIENT HAS SCDS ON BOTH LEGS. PATIENT WISHES TO SLEEP IN THE RECLINER. PATIENT DENIES ANY FURTHER NEEDS AT THIS TIME. CALL LIGHT IN REACH.
--- NOTE | 2016-11-27 23:54 | NUR ---
PATIENTS URINAL EMPTIED PER ORDER. PATIENT DENIES ANY PAIN. PATIENT DENIES ANY FURTHER NEEDS CALL LIGHT IS WITHINREACH.
--- NOTE | 2016-11-28 02:01 | NUR ---
PATIENTS CRYO REFILLED WITH ICE. PATIENT DENIES ANY PAIN AT THIS TIME. CALL LIGHT IN REACH.
--- NOTE | 2016-11-28 04:11 | NUR ---
PATIENT ASSISTED TO THE RESTROOM. PATIENT ASSISTED A 2PA W/FWW. PATIENT TOLERATED ACTIVITY WELL. PATIENT STRUGGLES WITH COORDINATION. PATIENT IS NOW IN BED RESTING. PATIENT COMPLAINS OF PAIN. PATIENT GIVEN PRN TYELNOL PER ORDER. PATIENT HAS SCDS, HELL PROTECTORS, AND CRYO ON LEFT KNEE. PATIENT DENIES ANY FURTHER NEEDS. PATIENT HAD X1 BM. BED ALARM ON AND CALL LIGHT IN REACH. PATIENT IS ONLT ORIENTED TO SELF.
--- NOTE | 2016-11-28 05:09 | NUR ---
PATIENT RESTED WELL FOR THE MAJORITY OF THE SHIFT IN THE RECLINER. PATIENT MOVED TO THE BED TO REST AROUND 0400. PATIENT HAD X1 BM. PATIENT RECEIVED X1 TYLENOL FOR PAIN IN HIS CHEST. PATIENTIS ON A DYSHPHAGI CHOPPED DIET AND IS TOLERATING IT WELL. PATIENT REFUSES TO WEAROXYGEN. PATIENT ENCOURAGE TO COMPLETE IS CORONET. PATIENT WEARS SCDSON BOTH LEGS. PATIENT HAS CRYO APPLIEF TO LEFT KNEE. PATIENT HAS NO IV. PATIENT IS ONLY ORIENTED TO SELF. PATIENTIS CONFUSED AND FORGETFUL. PATIENT HAS BED OR CHAIR ALARM IN PLACE FOR SAFETY. PATIENT USES CALL LIGHT ABOUT 50% OF THE TIME. PATIENT HAS INCISION ON LEFT KNEE THAT IS OPEN TO AIR, EDILIA PRESENT, AND IS WELL APPROXIMATED. PATIENT IS A 2PA W/FWW. HEEL PROTECTORS WORN WHILE PATIENT IS IN BED.
--- NOTE | 2016-11-28 06:20 | NUR ---
PATIENT ASSITED TO THE RESTROOM. PATIENT IS A 1-2 PA W/FWW. PATIENT STRUGGLES WITH COORDINATION. PATIENT IS ONLY ORIENTED TO SELF AT THIS TIME. PATIENT IS NOW RESTING IN RECLINER. CRYO REFILLED AND APPLIED TO LEFT KNEE. PATIENT DENIES ANY PAIN. PATIENTS CHAIR ALARMED PLACED ON FOR PATIENT SAFETY HE IS FORGETUL AT TIMES. CALL LIGHT IN REACH. SCDS ON
--- NOTE | 2016-11-28 08:29 | NUR ---
PATIENT FOUND SITTING IN BED, EATING BREAKFAST, REPORTS PAIN ON THE LEFT COASTAL REGION. LIDOCAINE PATCH APPLIED. DENIES NAUSEA. CRYO CUFF ON THE LEFT KNEE. SCD ON. PEDALS PULSE PRESENT AND PALPABLE. TRACE EDEMA NOTED ON THE LEFT LEG AND FOOT. NO IV ACCESS. CHAIR ALARM ON. PATIENT ORIENTED TO SELF, TIME AND DATE. CLOSE MONITORING. CALL LIGHT WITHIN REACH AND PATIENT AT VIEW OF THE NURSES STATION.
--- NOTE | 2016-11-28 09:55 | NUR ---
PT IS SITTING UP IN CHAIR VISITING WITH . PT DID NOT NEED ANYTHING ELSE
--- NOTE | 2016-11-28 10:17 | NUR ---
REMOVED PTS EDILIA FROM LEFT KNEE PER VERBAL ORDER FROM DR. RUANO. EDILIA HAVE BEEN PRESENT FOR THREE WEEKS SINCE SURGERY. PT TOLERATED REMOVAL WITH NO COMPLAINT OF PAIN. SURGERY INCISION SITE INTACT, NO DRAINAGE, REDNESS PRESENT. SOME BRUISING NOTED BELOW SITE. REAPPLIED ICE MACHINE TO PT KNEE. LEGS ELEVATED, SCDS IN PLACE, CALL LIGHT IN REACH. PT AT SIDE.
--- NOTE | 2016-11-28 11:28 | NUR ---
PATIENT SITTING UP IN CHAIR VISITING WITH HIS . NO REQUESTS AT THIS TIME.
--- NOTE | 2016-11-28 11:33 | NUR ---
PATIENT SITTING ON THE CHAIR RESTING, DENIES PAIN. IN ROOM VISITING.
--- NOTE | 2016-11-28 12:39 | NUR ---
PATIENT RESTING IN CHAIR EATING LUNCH. NO COMPLAINTS
--- NOTE | 2016-11-28 14:49 | NUR ---
PATIENT WALKED WITH PHYSICAL THERAPIST. TOLERATED WELL. REPORTED RIGHT RIBS PAIN WHILE WALKING. BACK TO BED AT THIS TIME RESTING.
--- NOTE | 2016-11-28 18:30 | NUR ---
PATIENT HAD DONE WELL FOR THIS SHIFT. WALKED WITH PHYSICAL THERAPIST ONCE. ATE MOST OF HIS MEALS. HAD MULTIPLE BM AND VOID WELL. EDILIA ON LEFT KNEE WERE REMOVED PER DR RUANO ORDER.CRYO CUFF APPLIED. REDNESS ON LEFT BUTTOCK STILL PRESENT. PATIENT WAS REPOSITIONED TRHOUGHOUT THE DAY. NO IV ACCESS. TRACE EDEMA ON THE LEFT LEG AND FOOT.
--- NOTE | 2016-11-28 19:49 | NUR ---
RECEIVED REPORT FROM DAY SHIFT RN. PATIENT IS RESTING IN BED WITH CRYO ON LEFT KNEE. PATIENT DENIES ANY PAIN AT THIS TIME. CALL LIGHT IN REACH. BED ALARM ON
--- NOTE | 2016-11-28 22:07 | NUR ---
PATIENT ASSESMENT COMPLETED. PATIENT DENIES ANY PAIN AT THIS TIME. PATIENT IS RESTING IN BED WATCHING TV. PATIENT HAS SCDS, AND HEEL PROTECTORS ON. PATIENT HAS INCISION ON LEFT KNEE THAT IS OPEN TO AIR AND WELL APPROXIMATED. EDILIA REMOVED ON DAY SHIFT. PATIENTS CRYO REFILLED WITH ICE PER DIRECTIONS. PATIENTS EVENING MEDICATIONS GIVEN PER ORDER. PATIENT DENIES ANY FURTHER NEEDS. PATIENTS BED ALARM PLACED ON FOR SAFETY. CALL LIGHT IN REACH.
--- NOTE | 2016-11-28 22:23 | NUR ---
PATIENT UP TO BATHROOM. 1PA WITH FWW, GAIT IMPROVED FROM PREVIOUS NIGHT, PATIENT USED THE CALL LIGHT APPROPRIATLY. AYDEN CARE COMPLETED WITH BARRIER CREAM APPLIED TO REDDENED AREA ON LEFT BUTTOCK. AREA BLANCHABLE. PATIENT POSITIONED IN BED WITH PILLOW UNDER RIGHT HIP. CALL LIGHT WITHIN REACH. FALL ALARM ON. NO FURTHER REQUEST AT THIS TIME.
--- NOTE | 2016-11-29 01:12 | NUR ---
PATIENT ASSISTED TO BATHROOM. 1PA W/FWW. PATIENT CORRDINATION IMPROVED FROM LAST NIGHT. AYDEN CARE PERFORMED WITH BARRIER CREAM APPLIED TO RED AREA ON LEFT BUTTOCK. AREA IS BLANCHABLE AND PATIENT STATES IT IS NOT TENDER. PATIENT MOVED TO RECLINER. CHAIR ALARM IN PLACE. SCDS ON. CROYCUFF IN PLACE WITH FRESH ICE/WATER. PATIENT DENIES PAIN. HEEL PROTECTORS ON. PATIENT REMINDED TO USE THE CALL LIGHT AND IT IS WITHIN REACH. NO FURTHER REQUEST AT THIS TIME.
--- NOTE | 2016-11-29 03:22 | NUR ---
ASSISTED PATIENT TO THE BATHROOM. AYDEN CARE COMPLETED, BARRIER CREAM APPLIED TO RED AREA ON LEFT BUTTOCK. AREA BLANCHABLE AND PATIENT STATES THE AREA IS NOT TENDER. 1PA W/FWW. GAIN CONTINUES TO IMPROVE. PATIENT REPORTED 3/10 PAIN IN HIS BACK. GIVEN PRN TYLENOL PER MD ORDERS. REMINDED PATIENT TO USE CALL LIGHT. CALL LIGHT WITHIN REACH. INSTRUCTED PATIENT TO USE THE IS. PATIENT DID 10 BREATHS ON THE IS. NO FURTHER REQUEST AT THIS TIME.
--- NOTE | 2016-11-29 05:04 | NUR ---
PATIENT RESTED WELL THROUGHTOUT THE SHIFT. PATIENT IS ON A DYSPHAGIA CHOPPED DIET. PATIENT HAS CRYO APPLIED TO HIS LEFT KNEE. PATIENTS INCISION SITE IS OPEN TO AIR AND WELL APPROXIMATED. PATIENT ENCOURAGED TO USE IS AND CORONET. PATIENT IS A 1PA W/FWW. PATIENT HAS NO IV. PATIENT HAS SCDS IN PLACE. PATIENT IS FORGETFUL AT TIMES. PATIENT IS ONLY ORIENTED TO SELF AT TIMES. PATIENT IS EASILY REORIENTED. PATIENTS BED/CHAIR ALARM IS ON FOR SAFETY. PATIENT USES CALL LIGHT ABOUT 50% OF THE TIME.
--- NOTE | 2016-11-29 06:27 | NUR ---
PATIENT ASSISTED TO THE RESTROOM. PATIENT WAS 2PA IN THE RESTROOM W/FWW. PATIENT WAS A 1PA W/FWW TO THE RECLINER. PATIENT IS NOW IN THE RECLINER. PATIENT HAS SCDS, HEEL PROTECTORS ON BOTH LEGS. CRYO REFILLED WITH ICE AND APPLIED TO LEFT KNEE. PATIENT DENIES ANY PAIN. ORAL CARE PERFORMED. PATIENTS CHAIR ALARM IS ON FOR SAFETY. PATIENT REORIENTED TO DATE, PLACE, TIME, AND SURROUNDINGS. CALL LIGHT IS WITHIN REACH.
--- NOTE | 2016-11-29 07:28 | NUR ---
BEDSIDE REPORT RECEIVED FROM TIMOTHY. ASSUMING PATIENT CARE AT THIS TIME. PATIENT RESTING IN CHAIR, NO COMPLAINTS AT THIS TIME.
--- NOTE | 2016-11-29 11:04 | NUR ---
patient has been relaxing in his chair he worked with PT.
--- NOTE | 2016-11-29 11:04 | NUR ---
PATIENT UP WALKING IN THE HALWAY WITH PHYSICAL THERAPIST. TOLERATED WELL. NO C/O PAIN.
--- NOTE | 2016-11-29 13:16 | NUR ---
PATIENT RESTING IN THE CHAIR. NO COMPLAINTS AT THIS TIME.
--- NOTE | 2016-11-29 17:33 | NUR ---
LIDOCAIN CREAM APPLIED TO LEFT GREAT TOE. PATIENT REPORT MILD PAIN ON THE LEFT GREAT TOE WHILE WALKING. PATIENT RESTING IN BED, DENIES NO NEEDS. FRIEND IN ROOM VISITING.
--- NOTE | 2016-11-29 18:45 | NUR ---
PATIENT HAD DONE WELL TODAY. WALKED FROM ROOM TO PHYSICAL THERAPY ROOM AND BACK TO HIS ROOM. TOLERATED WELL. REPORTED NO PAIN TROUGHOUT THE SHIFT. CALL APPROPRIATLY. THE REDNESS ON THE LEFT BUTTUCK STILL PRESENT. BARRIER CREAM APPLIED.
--- NOTE | 2016-11-29 21:02 | NUR ---
PT ASSESSMENT COMPLETE. PT DENIES ANY PAIN IN LEFT KNEE OR IN LEFT FOOT, DICLOFENAC OINTMENT APPLIED TO LEFT GREAT TOE. PT HAS NO IV ACCESS. PT IN GOOD SPIRITS THIS EVENING. LEFT KNEE IS OPEN TO AIR, INCISION HEALING WELL, WELL APPROXIMATED. CRYO CUFF IN PLACE. PT RESTING COMFORTABLY IN BED. PT DENIES ANY FURTHER NEEDS AT THIS TIME. CALL LIGHT WITHIN REACH.
--- NOTE | 2016-11-30 00:04 | NUR ---
PT WOKE UP CONFUSED, CALLING OUT FOR HIS . EASILY REORIENTED. REPOSITIONED IN BED. PT VOIDING IN URINAL. DENIES ANY FURTHER NEEDS AT THIS TIME. CALL LIGHT WITHIN REACH.
--- NOTE | 2016-11-30 04:26 | NUR ---
PT SLEEPING, RR EVEN AND UNLABORED. PT APPEARS COMFORTABLE AT THIS TIME. CALL LIGHT WITHIN REACH.
--- NOTE | 2016-11-30 05:10 | NUR ---
PT HAD AN UNEVENTFUL NIGHT. SLEPT MOST OF NIGHT. DENIED ANY PAIN. CRYO CUFF TO LEFT KNEE. LEFT KNEE IS OPEN TO AIR, INCISION WELL APPROXIMATED. PT CONFUSED, EASILY REORIENTED. PLEASANT AND COOPERATIVE. DICLOFENAC APPLIED TO LEFT GREAT TOE FOR COMFORT.
--- NOTE | 2016-11-30 07:28 | NUR ---
REPORT RECEIVED FROM JAYJAY RIDLEY. PT UP IN CHAIR WAITING FOR BREAKFAST. PT DENIES CONCERNS OR PAIN.
--- NOTE | 2016-11-30 08:48 | NUR ---
ASSESSMENT DONE. LIDO PLACED ON CHEST AND LEFT BIG TOE. PT DONE EATING BREAKFAST, ELEVATED FEET. CRYO IN PLACE. PT DENIES CONCERNS.
--- NOTE | 2016-11-30 10:28 | NUR ---
PUT PTS LEGS DOWN TO REPOSITION ON REAR. PT TOLERATED WELL AND DENIES CONCERNS. GAVE COFFEE.
--- NOTE | 2016-11-30 12:31 | NUR ---
PT'S ANTONELLA IS BACK ABLE TO VISIT WITH HIM FOLLOWING HER EYE SURGERY LAST WEEK. SHE EXPRESSED CONCERN TO ME REGARDING HIS RECOVERY WITH HIS KNEE. P.T. COMES IN, BUT SHE IS CONCERNED THAT HE IS NOT PROGRESSING. I SHARED THIS WITH HIS RN AND THEY WILL CONTINUE TO MONITOR. HAD PRAYER WITH BOTH OF THEM, AND WILL BE AVAILABLE NEEDED
--- NOTE | 2016-11-30 12:35 | NUR ---
PT HELPED BACK TO BED WITH FWW. WIPED UP REAR AND PUT NEW DEPENDS ON. IN CHAIR AT BEDSIDE. PT ASSISTED TO LAY ON SIDE TO GET OFF REAR FOR AWHILE.
--- NOTE | 2016-11-30 14:10 | NUR ---
OCC. THER. IN TO SEE PT AND ASSIST HIM BACK TO HIS BACKSIDE SIDE WAS HURTING HIS HIP. PT NOW COMFORTABLE.
--- NOTE | 2016-11-30 14:33 | NUR ---
PT TAKING A NAP IN BED AND TAKING NAP ON SOFA.
--- NOTE | 2016-11-30 15:05 | NUR ---
PT UP TO RESTROOM WITH FWW. TOLERATED WELL. HAD SMALL SOFT BM. BACK IN BED ON RIGHT SIDE WITH PILLOW AT BACK.
--- NOTE | 2016-11-30 19:24 | NUR ---
PT ASSESSMENT COMPLETE. PT RESTING IN BED COMFORTABLY. PT DENIES ANY PAIN. CRYO CUFF IN PLACE TO LEFT LEG, INCISION WELL APPROXIMATED, NO SWELLING/REDNESS NOTED. PT IN GOOD SPIRITS THIS EVENING. CALL LIGHT WITHIN REACH. PT DENIES ANY FURTHER NEEDS AT THIS TIME.
--- NOTE | 2016-11-30 21:23 | NUR ---
REPOSITIONED PT IN BED. REFILLED CRYO CUFF. APPLIED DICLOFENAC TO LEFT GREAT TOE. REMOVED LIDOCAINE PATCH FROM LEFT CHEST PER MD ORDERS. CALL LIGHT WITHIN REACH. PT DENIES ANY FURTHER NEEDS AT THIS TIME.
--- NOTE | 2016-12-01 00:44 | NUR ---
PT RESTING QUIETLY IN BED, RR EVEN AND UNLABORED. PT APPEARS COMFORTABLE AT THIS TIME. CALL LIGHT WITHIN REACH.
--- NOTE | 2016-12-01 01:45 | NUR ---
ASSISTED PT UP TO BATHROOM WITH x1 ASSIST USING FWW. PT HAD SMALL BM. PT BACK TO BED. IN GOOD SPIRITS, PLEASANTLY CONFUSED, COOPERATIVE. CRYO CUFF IN PLACE TO LEFT KNEE. WARM BLANKET GIVEN. CALL LIGHT WITHIN REACH. PT DENIES ANY FURTHER NEEDS AT THIS TIME.
--- NOTE | 2016-12-01 05:00 | NUR ---
PT SLEEPING, RR EVEN AND UNLABORED. PT APPEARS COMFORTABLE AT THIS TIME. CALL LIGHT WITHIN REACH.
--- NOTE | 2016-12-01 07:10 | NUR ---
REPORT RECEIVED FROM JAYJAY RIDLEY. PT AWAKE AND TALKATIVE. STATES HE SLEPT WELL.
--- NOTE | 2016-12-01 08:04 | NUR ---
PT UP IN CHAIR EATING BREAKFAST. SPEECH THER. IN DOING ANOTHER EVAL.
--- NOTE | 2016-12-01 10:26 | NUR ---
PT SITTING UP IN CHAIR WITH CRYO IN PLACE. DENIES CONCERNS.
--- NOTE | 2016-12-01 11:11 | NUR ---
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 ROOM. WITH TAMEKA. WITH PT. APPEARS TO BE TOLERATING WELL.
--- NOTE | 2016-12-01 12:41 | NUR ---
PT WORKING WITH Reji. HE HAS BEEN GOING UP AND DOWN THE HALLWAY. IN ROOM, WALKING BEHIND HIM IN SUPPORT. SHE FEELS HIS TIME IS SHORT HERE AND IS CONCERNED AT WHAT SHE PERCEIVES A LACK OF PROGRESS WITH REHAB ON HIS KNEE. HE WILL NEED HOME HEALTH TO FOLLOW UPON DC. WILL MAKE SURE ANTONELLA UNDERSTANDS THIS.
--- NOTE | 2016-12-01 12:55 | NUR ---
Got patient up in chair to eat breakfast also refused shower took one yesterday.
--- NOTE | 2016-12-01 13:56 | NUR ---
PT ASSISTED BACK TO BED. 1 PERS ASSIST WITH FWW. PT TOLERATED WELL.
--- NOTE | 2016-12-01 15:15 | NUR ---
PT HAS HAD MULTIPLE VISITORS IN THE LAST FEW HOURS AND HAS NOT HAD A CHANCE TO REST.
--- NOTE | 2016-12-01 17:23 | NUR ---
PT WORKED WITH PHYS. THER. X2 TODAY. TOLERATED WELL. WALKED IN [place] TO PT ROOM. SEVERAL VISITORS THIS EVENING, DID NOT GET A NAP. DID NOT REQUEST PRN TYLENOL FOR PAIN TODAY.
--- NOTE | 2016-12-01 18:37 | NUR ---
Filled Cryo at 1230PM.
--- NOTE | 2016-12-01 19:36 | NUR ---
Report recieved from day shift. Pt resting in bed. Independently using urinal. Boosted pt in bed with assist. Pt denies needs at this time. Call black within reach.
--- NOTE | 2016-12-01 23:19 | NUR ---
PT SLEEPING AT THIS TIME. PT USED URINAL INDEPENDENTLY, 100CC CLEAR/YELLOW EMPTIED.
--- NOTE | 2016-12-02 04:15 | NUR ---
PT RESTING IN BED, INDEPENDENTLY USED URINAL. PT STATES "HE IS COMFORTABLE." HYDRATION OFFERED BUT REFUSED.
--- NOTE | 2016-12-02 05:40 | NUR ---
PT SLEEPING. REPOSITIONED PT TO SEMI FOWLERS. CALL FOOTE WITHIN REACH.
--- NOTE | 2016-12-02 05:50 | NUR ---
PT HAD AN UNEVENTFUL NIGHT. PT SLEPT ALL NIGHT. NO PRN PAIN MEDICATION NEEDED.
--- NOTE | 2016-12-02 07:32 | NUR ---
PT. IS AWAKE IN BED. REPORT RECEIVED FROM RN. PT. IS EAGER FOR TO VISIT. NO NEEDS AT THIS TIME.
--- NOTE | 2016-12-02 08:32 | NUR ---
PT. IS UP IN CHAIR AND HAS FINISHED BREAKFAST. MORNING MEDICATIONS GIVEN PER MAR AND MORNING ASSESSMENT DONE. THERE ARE NO NEEDS AT THIS TIME.
--- NOTE | 2016-12-02 09:40 | NUR ---
AWAKE IN CHAIR EATING BREAKFAST. DID LINEN CHANGE. EMPTY GARBAGE. FRESH ICE WATER. FILLED CRYO CUFF. WARM BLANKET. PATIENT AGREED TO SHOWER LATER.
--- NOTE | 2016-12-02 10:45 | NUR ---
PT. IS SITTING IN CHAIR WATCHING TV. PAIN IS WELL CONTROLLED AT REST BUT ESCELATES WHEN UP WITH PHYSICIAL THERAPY. SCHEDULED TYLENOL AT 1230 WILL BE ADMINISTERED BEFORE PHYSICIAL THERAPY COMES BACK. NO NEEDS AT THIS TIME.
--- NOTE | 2016-12-02 11:12 | NUR ---
PT UP IN CHAIR. HAS REPOSITIONED HIMSELF SEVERAL TIMES. GIVEN WARM BLANKETS. PILLOW BEHIND HEAD.
--- NOTE | 2016-12-02 11:38 | NUR ---
PATIENT SLEEPING IN CHAIR DID NOT DISTURB.
--- NOTE | 2016-12-02 12:19 | NUR ---
PATIENT IN CHAIR EATING LUNCH, DID VITALS, REFILLED CRYO CUFF, HAS CHAIR ALARM ON AND CALL LIGHT IN REACH.
--- NOTE | 2016-12-02 12:31 | NUR ---
PT. UP IN CHAIR TALKING WITH FAMILY. PAIN MEDICATION GIVEN BEFORE PHYSICIAL THERAPY. NO OTHER NEEDS AT THIS TIME.
--- NOTE | 2016-12-02 13:50 | NUR ---
PT. OFF FLOOR FOR PHYSICIAL THERAPY.
--- NOTE | 2016-12-02 14:00 | NUR ---
PT IN CHAIR, HIS BY HIS SIDE. HAD A GOOD DISCUSSION REGARDING HIS DC, AND WHAT HELP MIGHT LOOK LIKE AT HOME. DISCUSSED HH, AND DIFFERENT DISCIPLINES DEPENDING THE DRS ORDERS. POSSIBLY OT, PT, RN OR BATH AIDE OR ANY COMBINATION. LEE WILL EXPLAIN ALL THIS DC GETS CLOSER. ALSO HOW IT IS PAID FOR. ANTONELLA SEEMED MUCH MORE RELIEVED, HAD PRAYER WITH BOTH AND WILL CONTINUE TO FOLLOW
--- NOTE | 2016-12-02 14:00 | NUR ---
PT. SITTING IN CHAIR AFTER PHYSICAL THERAPY, TALKING WITH FAMILY. NO NEEDS AT THIS TIME.
--- NOTE | 2016-12-02 15:03 | NUR ---
PATIENT IN CHAIR WATCHING TRAFFIC GO BY. PUT CRYO CUFF BACK ON KNEE. GOT HIM A WARM BLANKET. PICKED UP ROOM. CHAIR ALARM ON AND CALL LIGHT IN REACH.
--- NOTE | 2016-12-02 15:35 | NUR ---
PT. SITTING IN CHAIR TALKING TO FAMILY. PT. HAS NO NEEDS AT THIS TIME.
--- NOTE | 2016-12-02 16:51 | NUR ---
PT. REQUESTED HIS SWEAT PANTS BE REMOVED. NO OTHER NEEDS AT THIS TIME.
--- NOTE | 2016-12-02 17:49 | NUR ---
PT. HAS BEEN UP IN CHAIR VISITING WITH FAMILY FOR MAJORITY OF SHIFT. VITALS STABLE. TYLENOL GIVEN X2 FOR PAIN R/T PHYSICAL THERAPY. WHEN AT REST, PAIN IS WELL CONTROLLED. NO ACUTE CHANGES FROM BEGINNING OF SHIFT ASSESSMENT. INTENTIONAL ROUNDING DONE WITH ALL PATIENT'S NEEDS MET.
--- NOTE | 2016-12-02 18:59 | NUR ---
PATIENT IS BACK IN BED. I REFILLED CRYOCUFF AND PLACED CUFF ON HIS KNEE. I EMPTIED URINAL AND PLACED NEXT TO HIM WITHIN REACH. PATIENT STATED HE DID NOT NEED ANYTHING AT THIS TIME. HIS CALL LIGHT IS IN REACH.
--- NOTE | 2016-12-02 20:00 | NUR ---
REPOSITIONED PT TO FLOAT ON PILLOWS. INCISION TO L KNEE APPROXIMATED, NO REDNESS OR DRAINAGE. CRYO CUFF ON. PT DENIES NEEDING PAIN MEDICATION AT THIS TIME. PT VOIDING TO URINAL. RAILS UP X4, BED ALARM ON.
--- NOTE | 2016-12-02 21:26 | NUR ---
pt lidocaine off chest per order.
--- NOTE | 2016-12-02 23:32 | NUR ---
PT ASLEEP REPOSITIONED AT 2100. NO S/S OF DISTRESS.
--- NOTE | 2016-12-03 01:45 | NUR ---
PT USED URINAL INDEPENDENTLY. REPOSTIONED TO R SIDE. DENIES NEEDS. BED ALARM ON.
--- NOTE | 2016-12-03 05:21 | NUR ---
OFFERED PT TYLENOL, DENIES PAIN AT THIS TIME. EXPLAINED THAT WILL LIKELY HAVE MORE PAIN WHEN UP OUT OF BED TODAY. PT AGREED TO TAKE AT A LATER TIME. REPOSITIONED IN BED, HOWEVER PT REMOVES PILLOWS FROM UNDER HIPS ON HIS OWN.
--- NOTE | 2016-12-03 05:22 | NUR ---
PT SLEPT WELL DURING THE NIGHT. VOIDED TO URINAL INDEPENDENTLY. REPOSITIONED PT, HOWEVER HE REMOVES PILLOWS FROM BENEATH HIS HIPS. CALM AND COOPERATIVE THIS AM. REFUSING NEED FOR PAIN MEDICATION AT THIS TIME. CRYO CUFF ON L KNEE. INCISION REMAINS UNCHANGED - APPROXIMATED, MILD BRUISING, NO DRAINAGE.
--- NOTE | 2016-12-03 07:17 | NUR ---
BEDSIDE REPORT RECEIVED FROM JILL. PATIENT RESTING IN BED APPEARS TO BE SLEEPING. NO APPARENT DISTRESS NOTED. RR EVEN/UNLABORED.
--- NOTE | 2016-12-03 09:10 | NUR ---
PATIENT UP IN CHAIR. PICKED UP HIS ROOM. DID COMPLETE LINEN CHANGE. EMPTY GARBAGE. PUT CRYO CUFF BACK ON HIS KNEE. EMPTYED URINAL.
--- NOTE | 2016-12-03 10:19 | NUR ---
PATIENT UP TO CHAIR, WARM BLANKET PROVIDED. DENIES ANY NEED AT THIS TIME.
--- NOTE | 2016-12-03 12:17 | NUR ---
PATIENT UP IN CHAIR. HELPED PATIENT TRASFER TO BATHROOM AND THEN HELPED HIS SHOWER AFTER WORDS.
--- NOTE | 2016-12-03 14:28 | NUR ---
ANTONELLA IN WITH PT. THEY ARE PREPARING TO BE DC'D TOMORROW. THEY HAVE MADE SOME ARRANGEMENTS THAT WILL HELP AT HOME. GOOD VISIT, SHE HAS SOME ANXIETY-HE NEEDS TO HAVE MOTIVATION AT HOME. HAD PRAYER, GOD BLESS. WILL CONTINUE TO FOLLOW
--- NOTE | 2016-12-03 14:36 | NUR ---
PATIENT UP IN CHAIR VISITING WITH . MORENO JARRETT TOOK PATIENTS VITALS. CRYO CUFF STILL HAD PLENTY OF ICE IN IT. PATIENT IS CONTENT AND STATES HE DOES NOT NEED ANYTHING AT THIS TIME. CALL LIGHT IN REACH.
[2016-12-03] MEDS ORDERED: DICLOFENAC SOD100 G1 TOP (15:18)
[2016-12-03] MEDS ORDERED: PANTOPRAZOLE SO20 MG PO (15:19)
--- NOTE | 2016-12-03 17:24 | NUR ---
PATIENT RESTING IN BED, DENIES PAIN . HAD PT THIS AFTERNOO, TOLERATED THAT WELL.
--- NOTE | 2016-12-03 17:29 | NUR ---
PATIENT WAS UP WALKING TIN THE HALLWAY WITH PHYSICAL THERAPIST. TOLERATED WELL. NO COMPLAINTS OF PAIN EXCEPT ON THE LEFT GREAT TOE WITH PRESSUE.
--- NOTE | 2016-12-03 17:52 | NUR ---
PATIENT HAD DONE WELL TODAY. WALKED WITH PHYSICAL THERAPIST 2 TIMES TODAY FROM ROOM TO PT ROOM. TOLERATED WELL. PATIENT HAD SHOWERED TODAY. STILL REPORTED PAIN IN THE LEFT TOE WHEN WALKING AND PUT PRESSURE ON. LIDOCAIN PATCH APPLIED THE AM ON RIGHT SIDE. PATIENT REPORTED NO OTHER PAIN OR DISCOMFORT. MAY D/C TOMORROW.
--- NOTE | 2016-12-04 02:07 | NUR ---
IN TO CHECK ON PT, PT APPEARS TO BE SLEEPING. NO APPARENT DISTRESS NOTED. RR EVEN AND UNLABORED. CRYO CUFF, TEDS AND SCDS IN PLACE. CALL LIGHT WITH IN REACH.
--- NOTE | 2016-12-04 04:01 | NUR ---
PT HAS HAD UNEVENTFUL SHIFT, SLEPT WELL. DENIES PAIN. USES URINAL IN BED. INCISION OPEN TO AIR, WELL APPROXIMATED AND DRY. MAY D/C HOME TODAY.
--- NOTE | 2016-12-04 07:29 | NUR ---
BEDSIDE REPORT RECEIVED FROM PAM. ASSUMING PATIENT CARE AT THIS TIME.PATIENT RESTING IN BED AWAKE. DENIES PAIN. NO ACUTE DISTRESS NOTED.
--- NOTE | 2016-12-04 08:21 | NUR ---
PATIENT WAS ASSISTED TO CHAIR, WITH 1 PERS ASSIST. PATIENT ATE ALL OF HIS BREAKFAST. DENIES PAIN. NO APPARENT DISTRESS.
--- NOTE | 2016-12-04 11:10 | NUR ---
PATIENT AWAKE IN BED. ASSISTED HIM TO THE BATHROOM AND THEN TO CHAIR. GAVE HIM WET WASH CLOTH TO WASH HIS FACE. CLEANED HIS ROOM. EMPTYED HIS GARBAGE. FRESH ICE WATER. CALL LIGHT IN REACH.
--- NOTE | 2016-12-04 11:14 | NUR ---
PT DRESSED AND WAITING FOR HIS TO TAKE HIM HOME. COGNITIVE ABILITIES IMPROVED, A LITTLE ORNERY! EXTENDED A BLESSING-HIS GRAVEL HAULER WAS ALSO IN VISITING
--- NOTE | 2016-12-04 11:49 | NUR ---
FAXED FACESHEET, ORDER, H AND P, PROG NOTES, PT, OT, [facility] AND NOTES, LABS TO [facility], ALSO SPOKE WITH CYNTHIA ABOUT THIS PT. THEY ARE ADMITTING HIM Wednesday12/05/16. ALSO FAXED H AND P'S, DC SUMMARY'S TO [facility] REGARDING PT INPT AND SWING STAYS HERE PER [facility] REQUEST PT IS A VET ALSO.
== END 2016-12-04 12:10 | disposition home or self-care (01) | DRG 947 ==
LOC: MS 12:29
PROVIDERS: ADMIT Internal Medicine
DX: R53.81 Other malaise (principal); J96.01 Acute respiratory failure with hypoxia; J69.0 Pneumonitis due to inhalation of food and vomit; K22.11 Ulcer of esophagus with bleeding; K92.2 Gastrointestinal hemorrhage, unspecified; Z96.652 Presence of left artificial knee joint; R13.10 Dysphagia, unspecified; R41.0 Disorientation, unspecified
CPT/HCPCS: 71010; 73630; 92526; 92610; 94668; 94760; 94762; 97110; 97116; 97162; 97165; 97530; 97535; G8996; G8997